=== PATIENT | male | born 1945 | race Caucasian/White ===

== ENCOUNTER → 2016-09-29 | Outpatient (CLI) | payer MEDICARE, BC | LOC: MW.CHORTHO 08:00 | PROVIDERS: ATTEND Physician Assistant | DX: M17.12 Unilateral primary osteoarthritis, left knee (principal) | CPT/HCPCS: 20610; G0463; J1040 ==

== ENCOUNTER 2017-10-03 11:31 | Inpatient (IN) | payer MEDICARE, BC ==
--- NOTE | 2017-10-03 08:34 | PCM.OPNOTE ---
- General Post-Op/Procedure Note Date of Surgery/Procedure: 10/03/17 Operative Procedure(s): left TKA Post-Op Diagnosis: DJD left knee Anesthesia Technique: Moderate Sedation, Spinal Primary Surgeon: Janene Garcia Stopperer Assembler: Taina Flor in mLs: 50 Condition: Good Free Text/Narrative:: tt= #
[~2017-10-03 11:31] MED LIST: Acetaminophen 1,000 MG in Premix Bag 1 BAG IV SCH; Famotidine 20 MG/2 ML SDV IVPUSH SCH; Ketorolac 30 MG/ML SDV IVPUSH SCH; Ropivacaine 49.25 ML, Ketorolac 30 MG, EPINEPHrine 0.5 MG, cloNIDine 80 MCG in Sodium C... INJECT SCH; Scopolamine 1.5 MG Transdermal Patch TRDERM SCH; Tranexamic Acid 4,000 MG in Sodium Chloride 0.9% 100 ML IV SCH; ceFAZolin 2 GM in Premix Bag 1 BAG IV SCH; oxyCODONE ER 10 MG TAB.ER PO SCH
--- NOTE | 2017-10-03 11:54 | PCM.PREANE ---
Preanesthetic Assessment - Procedure Proposed Procedure: Left total knee replacement - Anesthesia/Transfusion/Family Hx Anesthesia History: Prior Anesthesia Without Reaction Other Type of Anesthesia Reaction Comment: Nauseated post Knee arthroscopy, No known family hx: problems Transfusion History: Prior Transfusion Without Reaction Intubation History: Unknown Additional History: spinal for prior knee replacement - Review of Systems General: Other (pain due to knee) Pulmonary: No Symptoms Cardiovascular: Other (HTN on amlodipine; not on B Issac) Gastrointestinal: No Symptoms Neurological: Difficulty Walking (due to pain in left knee), Gait Disturbance Other: Reports: None - Physical Assessment NPO Status Date: 10/02/17 (except PO meds per surgeon) NPO Status Time: 22:00 Height: 5 ft 7 in Weight: 225 lb ASA Class: 3 Mental Status: Alert & Oriented x3 Dentition: Reports: Normal Dentition, [place](s) Thyro-Mental Finger Breadths: 3 Mouth Opening Finger Breadths: 3 ROM/Head Extension: Limited/Partial Lungs: Clear to Auscultation, Normal Respiratory Effort Cardiovascular: Regular Rhythm, No Murmurs, Tachycardia - Allergies Allergies/Adverse Reactions: Allergies Allergy/AdvReac Type Severity Reaction Status Date / Time Cat Dander Allergy Sneezing Uncoded 03/21/15 16:54 Seasonal Allergy Other Uncoded 03/21/15 16:54 [place] Allergy Hives Uncoded 12/11/15 11:48 - Blood Blood Available: No Product(s) Available: None - Anesthesia Plan Free Text/Narrative:: at bedside during interview and exam; consent for procedure, did advise medicine may be involved if his tachycardia persisits - deemed due to preop work at home efforts and dehydration along with essential hypertension Pre-Op Medication Ordered: Other (per surgeon orders) - Acknowledgements Anesthesia Type Planned: Spinal Pt an Appropriate Candidate for the Planned Anesthesia: Yes Alternatives and Risks of Anesthesia Discussed w Pt/Guardian: Yes Pt/Guardian Understands and Agrees with Anesthesia Plan: Yes PreAnesthesia Questionnaire HEENT History: Reports: Other (See Below) Other HEENT History: has top and bottom partial Cardiovascular History: Reports: Hypertension Respiratory History: Reports: Other (See Below) Other Respiratory History: had sleep apnea in the past " it got bit better after tonsillectomy and partial uvulectomy" Gastrointestinal History: Reports: Other (See Below) Other Gastrointestinal History: occasional heartburn Genitourinary History: Reports: Prostate Disorder Musculoskeletal History: Reports: Osteoarthritis Other Musculoskeletal History: hx: Hairline fracture to Left leg Neurological History: Reports: None Psychiatric History: Reports: None Endocrine/Metabolic History: Reports: Obesity/BMI 30+ Hematologic History: Reports: Blood Transfusion(s) Other Hematologic History: blood transfusion with prostatectomy Immunologic History: Reports: None Oncologic (Cancer) History: Reports: Prostate Dermatologic History: Reports: None - Past Surgical History Head Surgeries/Procedures: Reports: None HEENT Surgical History: Reports: Tonsillectomy Other HEENT Surgeries/Procedures: Tonsillectomy and partial uvulectomy at age 52 yrs GI Surgical History: Reports: Colonoscopy Male Surgical History: Reports: Prostatectomy Other Male Surgeries/Procedures: prostatectomy for prostate cancer Musculoskeletal Surgical History: Reports: Arthroscopic Knee, Hip Replacement, Knee Replacement Other Musculoskeletal Surgeries/Procedures:: Rt Arthroscopy, Right Hip Replacement, Right Knee Replacement - SUBSTANCE USE Smoking Status *Q: Never Smoker Tobacco Use Within Last Twelve Months:  Other Tobacco Use Within Last Twelve Months: Used to have Cigar once a year...have not for a long time Second Hand Smoke Exposure: No Recreational Drug Use History: No - HOME MEDS Home Medications: Home Meds amLODIPine [Norvasc] 5 mg PO ACBREAKFAST 03/21/15 [History] Omega3/Dha/Epa/Fish Oil/Vit D3 [Fish Oil + Vitamin D-3 Softgel] 1,000 mg PO DAILY 12/11/15 [History] Acetaminophen [Tylenol Extra Strength] 2 tab PO ASDIRECTED PRN 09/28/17 [History ] - CURRENT (IN HOUSE) MEDS Current Meds: Current Medications Famotidine (Pepcid) 40 mg IVPUSH ONARRIVE JONATHAN Acetaminophen 1,000 mg/ Premix 100 mls @ 400 mls/hr IV ONARRIVE JONATHAN Cefazolin Sodium/Dextrose 2 gm (/ Premix) 50 mls @ 100 mls/hr IV ONCALL JONATHAN Ropivacaine 49.25 ml/Ketorolac Tromethamine 30 mg/Epinephrine HCl 0.5 mg/ Clonidine HCl 80 mcg/ Sodium Chloride 100 mls @ 50 mls/sec INJECT ASDIRECTED JONATHAN Lactated Ringer's (Ringers, Lactated) 1,000 mls @ 100 mls/hr IV ASDIRECTED JONATHAN Tranexamic Acid 4,000 mg/ (Sodium Chloride) 140 mls @ 600 mls/hr IV ASDIRECTED JONATHAN Ketorolac Tromethamine (Toradol) 30 mg IVPUSH ONARRIVE JONATHAN Oxycodone HCl (Oxycontin) 10 mg PO ONARRIVE JONATHAN Scopolamine (Transderm-Scop) 1.5 mg TRDERM ONARRIVE JONATHAN Discontinued Medications Tranexamic Acid (Cyklokapron) Confirm Administered Dose 4,000 mg .ROUTE .[facility] Stop: 10/03/17 07:43
[2017-10-03] MEDS ORDERED: Lidocaine 2% 5 ML SDV ONE (11:58)
[2017-10-03] MEDS ORDERED: Propofol 200 MG/20 ML SDV ONE ×3 (11:58→14:24)
[2017-10-03] MEDS ORDERED: fentaNYL 100 MCG/2 ML SDV ONE (11:58)
[2017-10-03] MEDS ORDERED: Midazolam 1 MG/ML 2 ML SDV ONE (11:59)
[2017-10-03] MEDS ORDERED: ePHEDrine 50 MG/ML SDV ONE (12:05)
[2017-10-03] MEDS: Lactated Ringers 1,000 ML IV SCH (12:15)
[2017-10-03] MEDS ORDERED: Labetalol 100 MG/20 ML MDV ONE (14:07)
[2017-10-03] MEDS ORDERED: fentaNYL 100 MCG/2 ML SDV IVPUSH PRN (14:26)
[2017-10-03] MEDS ORDERED: Morphine PF 30 MG/30 ML PCA Vial ONE (15:02)
[2017-10-03] MEDS ORDERED: diphenhydrAMINE 25 MG Cap PO PRN (15:03)
[2017-10-03] MEDS ORDERED: Aluminum Hydroxide/Magnesium Hydroxide/Simethicone Susp 30 ML Cup PO PRN (15:04)
[2017-10-03] MEDS ORDERED: oxyCODONE 5 MG Tab PO PRN (15:04)
[2017-10-03] MEDS ORDERED: Bisacodyl 10 MG Supp RECTAL PRN (15:04)
[2017-10-03] MEDS ORDERED: Morphine PF 30 MG/30 ML PCA Vial IV SCH (15:15)
[2017-10-03] MEDS ORDERED: oxyCODONE 5 MG Tab ONE (18:20)
--- NOTE | 2017-10-04 01:57 | CR ---
EXAMINATION: Left knee HISTORY: Arthroplasty COMPARISON: 01/04/2017 TECHNIQUE: 2 views FINDINGS/IMPRESSION: Left total knee hardware demonstrated in good position and alignment. Postoperat jodie soft tissue changes.
--- NOTE | 2017-10-04 01:57 | OR ---
SURGEON: Janene Garcia MD DATE OF PROCEDURE: 10/03/2017 PREOPERATIVE DIAGNOSIS: Degenerative joint disease, left knee, tricompartmental. POSTOPERATIVE DIAGNOSIS: Degenerative joint disease, left knee, tricompartmental. PROCEDURE: Left total knee arthroplasty using patient specific instrumentation. MAIN LINE ASSEMBLER: Taina Flor PA-C and Trevor King MD, PGY2. ANESTHESIA: Spinal with sedation. ESTIMATED BLOOD LOSS: 50 mL. TOURNIQUET TIME: 50 minutes. COMPLICATIONS: None. DVT PROPHYLAXIS: PAS boot and MACO hose to the nonoperative leg. IMPLANTS USED: Ella Persona femoral component size 8 standard (LPS), tibial component size G, 10 mm all-polyethylene articular surface, and 35 mm all-polyethylene patella. INTRAOPERATIVE FINDINGS: Showed severe tricompartmental degenerative changes. Osteophyte formation was noted. No significant synovitis was found. BRIEF HISTORY: The patient is a 71-year-old male who has had complaint of progressive left knee pain. X-rays did show evidence of tricompartmental degenerative changes. Due to his lack of response to conservative treatment, I did recommend surgical intervention. Risks and goals of procedure were discussed with the patient and were documented preoperatively. He agreed to proceed. DESCRIPTION OF PROCEDURE: The patient was properly identified and brought to the operating room. The patient was then transferred from the operating room cart and placed on the operating table in a supine position. Anesthesia was administered by the anesthesia staff. After adequate anesthesia was obtained, a well-padded tourniquet was applied to the surgical lower extremity. Nolen catheter was placed. The lower extremity was then prepped in standard fashion using ChloraPrep solution. It was then sterilely draped. A time-out was performed to ensure correct site and procedure. Preoperative antibiotics were given along with one gram of tranexamic acid IV. The surgical site had been marked preoperatively. An Esmarch was used to exsanguinate the right lower extremity and the tourniquet was inflated. An incision was made over the anterior aspect of the knee. The subcutaneous tissues were dissected down to the level of the fascia. A medial parapatellar approach to the knee was made. A portion of the infrapatellar fat pad was then excised. The distal femur was then exposed. The femoral patient-specific cutting guide was then placed. Pins were also placed. The distal femoral cutting block was placed and the distal femoral cut was made. Instrumentation was then removed. Both Whitesides' line and the epicondylar axis were then marked with electrocautery. The 4-in-1 cutting block was placed. This was placed in a slightly externally rotated position, which corresponded well with the previously drawn lines. The cutting guide was then pinned into position. An Sree wing guide was used to check the depth of resection of our anterior condylar cut and it was felt that no notching would occur. The anterior condylar cut was then made followed by the posterior condylar cut. Both the posterior chamfer and anterior chamfer cuts were then made. The cutting block was then removed along with the excess bony remnants. We then turned our attention to the tibia. The anterior cruciate ligament and posterior cruciate ligament were released and a posterior cruciate ligament retractor was placed to allow the tibia to be pulled anteriorly. The tibial patient-specific guide was then placed on the proximal tibia. This fit anatomically. The pins were then placed. The proximal tibia cutting guide was then placed and screwed into position. The proximal tibial resection was then made with care being taken to protect the patellar tendon. The bony resection was then removed. The remainder of the medial and lateral meniscus were then excised. Care was taken to protect the popliteus tendon. The tibia was then sized to the appropriate size. The distal femur was then elevated. The posterior capsule was stripped off the distal femur both medially and laterally. The posterior capsule along with the medial and lateral gutters were then injected with a standard mixture consisting of clonidine, epinephrine, Toradol, and Ropivacaine, unless any allergies were found preoperatively. The femoral component was then placed onto the distal femur in a slightly lateral position. This fit the femur well. A box cut was then made without difficulty. This was then removed. The tibial trial along with the polyethylene liner was then placed. The knee came easily into full extension and was stable to varus and valgus stressing both in full extension and flexion. Any additional releases were performed at this time. We then returned our attention to the patella. The patella was everted and towel clamps were used to hold the patella in position. It was resected to a 15 millimeter thickness. It was then sized to the appropriate size. It was prepared in the usual fashion after placing the predetermined size clamps. This was placed in a slightly superior and medial position. The clamp was then removed. The patellar trial button was placed. The knee was taken through a range of motion using the no-touch technique. The patella tracked centrally. A drop mireya was then placed to check alignment. All instruments were then removed from the knee. The tibial sizer was then placed on the tibia. The tibia was prepared in the usual fashion using the reamer and broach. This was then removed. All bony surfaces were copiously irrigated with Pulsavac solution. They were then suctioned dry. Cement was prepared on the back table in the usual manner. Once it was prepared, the bone ends were again suctioned dry. The tibia was cemented into place first. This was malleted into position. Excess cement was then cleared. The femur was then placed in a similar manner. We placed the polyethylene trial into place and the knee was brought into full extension. An axial load was placed while keeping the knee in full extension. The patella button was also cemented into position and the clamp was used to hold this in place as the cement was allowed to cure. The wound was again copiously irrigated with saline solution using a Pulsavac member service representative. Following this 1 g of tranexamic acid was applied to the wound topically. After we had adequate curing of the cement, the knee was again taken through a range of motion. The size of the polyethylene was then determined. The polyethylene trial was then removed. The tibial tray was suctioned to make sure there was no remaining soft tissue or cement. Excess cement was cleared from around the edges of the prosthesis as well. The tourniquet was then deflated. We were able to observe for any excess bleeding and none was noted. Electrocautery was used to maintain hemostasis. An additional gram of tranexamic acid was given IV. The retractors were again placed and the predetermined polyethylene was then placed. This was locked into position without difficulty. The knee was again taken through a range of motion with no change from the prior exam. The fascial layer was closed with Number One Vicryl. The subcutaneous tissues were closed with 2-0 Vicryl. The skin was closed with helena. Xeroform gauze was placed over the wound and a bulky dressing was applied. The patient was then awakened from anesthesia and transferred back to the operating room cart. They were brought to the recovery room in stable condition. All needle and sponge counts were correct. FABRICIO / VINCENT /[id number]
[2017-10-04] MEDS: Docusate Sodium 100 MG Cap PO SCH ×3 (04:22→20:23)
[2017-10-04] MEDS: ceFAZolin 2 GM in Premix Bag 1 BAG IV SCH ×2 (04:22→04:57)
[2017-10-04] MEDS: oxyCODONE ER 10 MG TAB.ER PO SCH ×3 (04:23→20:21)
[2017-10-04] MEDS: Ketorolac 30 MG/ML SDV IVPUSH SCH (04:26)
[2017-10-04] MEDS: Acetaminophen 1,000 MG in Premix Bag 1 BAG IV SCH ×2 (04:36→10:31)
[2017-10-04] MEDS: Lactated Ringers 1,000 ML IV SCH (05:37)
--- NOTE | 2017-10-04 07:15 | PCM48HPAN ---
Post Anesthesia Note - EVALUATION WITHIN 48HRS OF ANESTHETIC Vital Signs in Normal Range: Yes Patient Participated in Evaluation: Yes Respiratory Function Stable: Yes Airway Patent: Yes Cardiovascular Function Stable: Yes Hydration Status Stable: Yes Pain Control Satisfactory: Yes Nausea and Vomiting Control Satisfactory: Yes Mental Status Recovered: Yes Resp Rate: 18
--- NOTE | 2017-10-04 07:15 | PCM.POSTAN ---
POST ANESTHESIA ASSESSMENT - MENTAL STATUS Mental Status: Alert, Oriented - RESPIRATORY Respiratory Status: Respiratory Rate WNL, Airway Patent, O2 Saturation Stable - CARDIOVASCULAR CV Status: Pulse Rate WNL, Blood Pressure Stable - GASTROINTESTINAL GI Status: No Symptoms - POST OP HYDRATION Hydration Status: Adequate & Stable
[2017-10-04] MEDS ORDERED: Sodium Chloride 0.9% 10 ML Syringe FLUSH PRN (07:57)
[2017-10-04] MEDS ORDERED: Sodium Chloride 0.9% 2.5 ML Syringe FLUSH PRN (07:57)
[2017-10-04] MEDS ORDERED: Morphine 10 MG/ML Syringe IVPUSH PRN (08:00)
--- NOTE | 2017-10-04 08:02 | PCM.SURGPN ---
- General Info Date of Service: 10/04/17 Date of Surgery/Procedure: 10/03/17 POD#: 1 Functional Status: Reports: Pain Controlled, Tolerating Diet - Review of Systems General: Reports: No Symptoms Pulmonary: Reports: No Symptoms Cardiovascular: Reports: No Symptoms Gastrointestinal: Reports: No Symptoms Musculoskeletal: Reports: Leg Pain Systems Review Comment:: pt resting comfortably in bed feels pain is controlled c/o lightheadedness when he stands no other complaints denies n/v/cp/sob no specific concerns today - Patient Data Vitals - Most Recent: Last Vital Signs Temp 98.7 F 10/04/17 04:16 Pulse 74 10/04/17 07:45 Resp 16 10/04/17 07:45 BP 153/70 H 10/04/17 07:45 Pulse Ox 92 L 10/04/17 07:45 Weight - Most Recent: 102.058 kg I&O - Last 24 Hours: Intake & Output 10/03/17 10/04/17 10/04/17 22:59 06:59 14:59 Intake Total 1549 Output Total 950 Balance 599 Lab Results Last 24 Hrs: Laboratory Results - last 24 hr 10/03/17 10/04/17 Range/Units 12:04 06:03 Hgb 12.1 L (13.0-17.0) g/dL Hct 36.6 L (38.0-50.0) % Blood Type O POSITIVE Antibody Screen NEGATIVE Med Orders - Current: Current Medications Al Hydroxide/Mg Hydroxide (Mag-Al Plus) 30 ml PO Q4H PRN PRN Reason: indigestion Amlodipine Besylate (Norvasc) 5 mg PO ACBREAKFAST [facility] Aspirin (Aspirin) 325 mg PO BID [facility] Bisacodyl (Dulcolax) 10 mg RECTAL DAILY PRN PRN Reason: Constipation Celecoxib (Celebrex) 200 mg PO BID [facility] Diphenhydramine HCl (Benadryl) 25 - 50 mg PO Q6H PRN PRN Reason: Itching Docusate Sodium (Colace) 100 mg PO BID [facility] Last Admin: 10/04/17 04:22 Dose: Not Given Famotidine (Pepcid) 40 mg PO DAILY [facility] Fentanyl (Sublimaze) 50 mcg IVPUSH Q5M PRN PRN Reason: Pain (severe 7-10) Stop: 10/04/17 14:26 Ropivacaine 49.25 ml/Ketorolac Tromethamine 30 mg/Epinephrine HCl 0.5 mg/ Clonidine HCl 80 mcg/ Sodium Chloride 100 mls @ 50 mls/sec INJECT ASDIRECTED [facility] Tranexamic Acid 4,000 mg/ (Sodium Chloride) 140 mls @ 600 mls/hr IV ASDIRECTED [facility] Acetaminophen 1,000 mg/ Premix 100 mls @ 400 mls/hr IV Q8H JONATHAN Stop: 10/04/17 12:14 Morphine Sulfate (Morphine) 1 - 3 mg IVPUSH Q3H PRN PRN Reason: Pain Morphine Sulfate (Morphine Pre Billing Specialist 30 Mg In 30 Ml) 30 mg IV ASDIRECTED [facility]; Protocol Stop: 10/04/17 08:00 Non-Formulary Medication (Omega3/Dha/Epa/Fish Oil/Vit D3 [Fish Oil + Vitamin D- 3 Softgel]) 1,000 mg PO DAILY [facility] Ondansetron HCl (Zofran) 4 mg IV Q6HR PRN PRN Reason: NAUSEA/VOMITING Oxycodone HCl (Oxycodone) 5 - 10 mg PO Q4H PRN PRN Reason: Pain Stop: 10/04/17 08:00 Last Admin: 10/04/17 04:47 Dose: 10 mg Oxycodone HCl (Oxycontin) 10 mg PO Q12HR [facility] Last Admin: 10/04/17 04:23 Dose: Not Given Scopolamine (Transderm-Scop) 1.5 mg TRDERM ONARRIVE [facility] Last Admin: 10/03/17 12:17 Dose: 1.5 mg Discontinued Medications Ephedrine Sulfate (Ephedrine Sulfate) Confirm Administered Dose 50 mg .ROUTE .STK-MED ONE Stop: 10/03/17 12:06 Famotidine (Pepcid) 40 mg IVPUSH ONARRIVE [facility] Last Admin: 10/03/17 12:16 Dose: 40 mg Fentanyl (Sublimaze) Confirm Administered Dose 100 mcg .ROUTE .STK-MED ONE Stop: 10/03/17 11:59 Acetaminophen 1,000 mg/ Premix 100 mls @ 400 mls/hr IV ONARRIVE [facility] Last Admin: 10/03/17 12:20 Dose: 400 mls/hr Cefazolin Sodium/Dextrose 2 gm (/ Premix) 50 mls @ 100 mls/hr IV ONCALL [facility] Lactated Ringer's (Ringers, Lactated) 1,000 mls @ 100 mls/hr IV ASDIRECTED [facility] Last Admin: 10/04/17 05:37 Dose: 100 mls/hr Acetaminophen 1,000 mg/ Premix 100 mls @ 400 mls/hr IV Q6H [facility] Stop: 10/04/17 06:44 Last Admin: 10/04/17 04:36 Dose: 400 mls/hr Cefazolin Sodium/Dextrose 2 gm (/ Premix) 50 mls @ 100 mls/hr IV Q8H [facility] Stop: 10/04/17 05:29 Last Admin: 10/04/17 04:57 Dose: 100 mls/hr Acetaminophen (Ofirmev) Confirm Administered Dose 100 mls @ as directed IV .STK- MED ONE Stop: 10/03/17 21:26 Last Admin: 10/04/17 07:53 Dose: Not Given Ketorolac Tromethamine (Toradol) 30 mg IVPUSH ONARRIVE [facility] Last Admin: 10/03/17 12:18 Dose: 30 mg Ketorolac Tromethamine (Toradol) 30 mg IVPUSH Q6H [facility] Stop: 10/04/17 05:00 Last Admin: 10/04/17 04:26 Dose: Not Given Labetalol HCl (Normodyne) Confirm Administered Dose 100 mg .ROUTE .STK-MED ONE Stop: 10/03/17 14:08 Lidocaine (Xylocaine-Mpf 2%) Confirm Administered Dose 10 ml .ROUTE .STK-MED ONE Stop: 10/03/17 11:59 Midazolam HCl (Versed 1 Mg/Ml) Confirm Administered Dose 2 mg .ROUTE .STK-MED ONE Stop: 10/03/17 12:00 Morphine Sulfate (Morphine Pre Billing Specialist 30 Mg In 30 Ml) Confirm Administered Dose 30 mg .ROUTE .STK-MED ONE Stop: 10/03/17 15:03 Oxycodone HCl (Oxycontin) 10 mg PO ONARRIVE [facility] Last Admin: 10/03/17 12:15 Dose: 10 mg Oxycodone HCl (Oxycodone) Confirm Administered Dose 10 mg .ROUTE .STK-MED ONE Stop: 10/03/17 18:21 Propofol (Diprivan 20 Ml) Confirm Administered Dose 400 mg .ROUTE .STK-MED ONE Stop: 10/03/17 11:59 Propofol (Diprivan 20 Ml) Confirm Administered Dose 200 mg .ROUTE .STK-MED ONE Stop: 10/03/17 13:59 Propofol (Diprivan 20 Ml) Confirm Administered Dose 200 mg .ROUTE .STK-MED ONE Stop: 10/03/17 14:25 Tranexamic Acid (Cyklokapron) Confirm Administered Dose 4,000 mg .ROUTE .STK- MED ONE Stop: 10/03/17 07:43 - Exam Wound/Incisions: Dressing Dry and Intact. No: Drainage, Erythema General: Alert, Oriented Cardiovascular: Regular Rate, Regular Rhythm Extremities: Other (exam LLE - at/ehl/gastroc 5/5, dp 2+, sensation intact distally) Physical Findings Comment:: vss, afeb (bp slightly elevated) uo 1100+mL hgb 12.1 - Problem List Review Problem List Initiated/Reviewed/Updated: Yes - My Orders Last 24 Hours: Active Orders 24 hr Category Date Time Status Activity as Tolerated [RC] .Routine Care 10/03/17 15:03 Active Dressing Change [Wound Care] [RC] ASDIRECTED Care 10/03/17 15:03 Active Insert Urinary Catheter [OM.PC] Q24H Care 10/03/17 08:00 Ordered Intake and Output [RC] Q12H Care 10/03/17 15:03 Active Neurovascular Check [RC] Q2HR Care 10/03/17 15:03 Active Notify Provider Vital Signs [RC] ASDIRECTED Care 10/03/17 15:03 Active RT Incentive Spirometry [RC] ASDIRECTED Care 10/03/17 15:03 Active Urinary Catheter Assessment [RC] Q12H Care 10/03/17 08:00 Active Urinary Catheter Removal [RC] Per Unit Routine Care 10/04/17 07:57 Ordered Vital Signs [RC] Q4H Care 10/03/17 15:03 Active PT Evaluation and Treatment [CONS] Routine Cons 10/03/17 15:03 Active Regular Diet [DIET] Diet 10/04/17 Breakfast Active HEMOGLOBIN/HEMATOCRIT,HH [HEME] DAILY Lab 10/05/17 06:00 Ordered HEMOGLOBIN/HEMATOCRIT,HH [HEME] DAILY Lab 10/06/17 06:00 Ordered Acetaminophen [Ofirmev] 1,000 mg Med 10/04/17 12:00 Active Premix Bag 1 bag IV Q8H Alum Hydrox/Mag Hydrox/Simeth [Mag-Al Plus] Med 10/03/17 15:04 Active 30 ml PO Q4H PRN Aspirin Med 10/04/17 09:00 Active 325 mg PO BID Bisacodyl [Dulcolax] Med 10/03/17 15:04 Active 10 mg RECTAL DAILY PRN Celecoxib [CeleBREX] Med 10/04/17 09:00 Active 200 mg PO BID Docusate Sodium [Colace] Med 10/03/17 21:00 Active 100 mg PO BID Famotidine [Pepcid] Med 10/04/17 09:00 Active 40 mg PO DAILY Morphine Med 10/04/17 08:00 Active 1 - 3 mg IVPUSH Q3H PRN Morphine PF [Morphine COLON THERAPIST 30 MG in 30 ML] Med 10/03/17 15:15 Active 30 mg IV ASDIRECTED Omega3/Dha/Epa/Fish Oil/Vit D3 [Fish Oil + Vitamin D-3 Med 10/04/17 09:00 Ordered Softgel] 1,000 mg PO DAILY Ondansetron [Zofran] Med 10/03/17 15:03 Active 4 mg IV Q6HR PRN Ropivacaine [Naropin 0.2%] 49.25 ml Med 10/03/17 08:00 Active Ketorolac [Toradol] 30 mg EPINEPHrine [Adrenalin] 0.5 mg cloNIDine [Duraclon] 80 mcg Sodium Chloride 0.9% [Normal Saline] 48.45 ml INJECT ASDIRECTED Sodium Chloride 0.9% [Saline Flush] Med 10/04/17 07:57 Ordered 10 ml FLUSH ASDIRECTED PRN Sodium Chloride 0.9% [Saline Flush] Med 10/04/17 07:57 Ordered 2.5 ml FLUSH ASDIRECTED PRN Tranexamic Acid [Cyklokapron] 4,000 mg Med 10/03/17 08:00 Active Sodium Chloride 0.9% [Normal Saline] 100 ml IV ASDIRECTED amLODIPine [Norvasc] Med 10/05/17 07:30 Ordered 5 mg PO ACBREAKFAST diphenhydrAMINE [Benadryl] Med 10/03/17 15:03 Active 25 - 50 mg PO Q6H PRN fentaNYL [Sublimaze] Med 10/03/17 14:26 Active 50 mcg IVPUSH Q5M PRN oxyCODONE Med 10/03/17 15:04 Active 5 - 10 mg PO Q4H PRN oxyCODONE ER [OxyCONTIN] Med 10/03/17 21:00 Active 10 mg PO Q12HR Convert IV to Saline Lock [OM.PC] Routine Oth 10/04/17 07:57 Ordered Ice Therapy [OM.PC] Routine Oth 10/03/17 15:03 Ordered Medication Orders Al Hydroxide/Mg Hydroxide (Mag-Al Plus) 30 ml PO Q4H PRN PRN Reason: indigestion Amlodipine Besylate (Norvasc) 5 mg PO ACBREAKFAST [facility] Aspirin (Aspirin) 325 mg PO BID [facility] Bisacodyl (Dulcolax) 10 mg RECTAL DAILY PRN PRN Reason: Constipation Celecoxib (Celebrex) 200 mg PO BID [facility] Diphenhydramine HCl (Benadryl) 25 - 50 mg PO Q6H PRN PRN Reason: Itching Docusate Sodium (Colace) 100 mg PO BID [facility] Last Admin: 10/04/17 04:22 Dose: Famotidine (Pepcid) 40 mg PO DAILY [facility] Fentanyl (Sublimaze) 50 mcg IVPUSH Q5M PRN PRN Reason: Pain (severe 7-10) Stop: 10/04/17 14:26 Ropivacaine 49.25 ml/Ketorolac Tromethamine 30 mg/Epinephrine HCl 0.5 mg/ Clonidine HCl 80 mcg/ Sodium Chloride 100 mls @ 50 mls/sec INJECT ASDIRECTED [facility] Tranexamic Acid 4,000 mg/ (Sodium Chloride) 140 mls @ 600 mls/hr IV ASDIRECTED [facility] Acetaminophen 1,000 mg/ Premix 100 mls @ 400 mls/hr IV Q8H [facility] Stop: 10/04/17 12:14 Morphine Sulfate (Morphine) 1 - 3 mg IVPUSH Q3H PRN PRN Reason: Pain Morphine Sulfate (Morphine Pre Billing Specialist 30 Mg In 30 Ml) 30 mg IV ASDIRECTED [facility]; Protocol Stop: 10/04/17 08:00 Non-Formulary Medication (Omega3/Dha/Epa/Fish Oil/Vit D3 [Fish Oil + Vitamin D- 3 Softgel]) 1,000 mg PO DAILY [facility] Ondansetron HCl (Zofran) 4 mg IV Q6HR PRN PRN Reason: NAUSEA/VOMITING Oxycodone HCl (Oxycodone) 5 - 10 mg PO Q4H PRN PRN Reason: Pain Stop: 10/04/17 08:00 Last Admin: 10/04/17 04:47 Dose: 10 mg Oxycodone HCl (Oxycontin) 10 mg PO Q12HR [facility] Last Admin: 10/04/17 04:23 Dose: Scopolamine (Transderm-Scop) 1.5 mg TRDERM ONARRIVE [facility] Last Admin: 10/03/17 12:17 Dose: 1.5 mg - Assessment Assessment (Free Text/Narrative):: POD#1 L TKA acute posthemorrhagic anemia - Plan Plan (Free Text/Narrative):: oxycontin, percocet 5/325, morphine IV for breakthrough pain celebrex ASA 325mg PO BID as DVT prophylaxis DC COLON THERAPIST, IV fluids, peraza PT today if pt does well with PT, pain is controlled, tolerates PO intake, may d/ch to home this afternoon dressing change to aquacel prior to d/ch to home
[2017-10-04] MEDS: Aspirin 325 MG Tab PO SCH ×2 (08:12→20:22)
[2017-10-04] MEDS: Celecoxib 100 MG Cap PO SCH ×2 (08:12→20:22)
[2017-10-04] MEDS: Fish Oil/Omega-3 Fatty Acids 1 Gm Cap PO SCH (08:13)
[2017-10-04] MEDS: Famotidine 20 MG Tab PO SCH (08:13)
--- NOTE | 2017-10-04 08:21 | PCM.SURGPN ---
<Trevor King - Last Filed: 10/04/17 08:24> - General Info Date of Service: 10/04/17 Date of Surgery/Procedure: 10/03/17 POD#: 1 - Review of Systems Systems Review Comment:: No major events overnight. Doing well this am. Pain is tolerable. Has been out of bed to chair. Tolerating oral intake. Some lightheadedness/dizziness when up. Denies nausea, vomiting, fever, chills, chest pain, or SOB. Peraza in place. - Patient Data Vitals - Most Recent: Last Vital Signs Temp 37.1 C 10/04/17 04:16 Pulse 74 10/04/17 07:45 Resp 16 10/04/17 07:45 BP 153/70 H 10/04/17 07:45 Pulse Ox 92 L 10/04/17 07:45 Weight - Most Recent: 102.058 kg I&O - Last 24 Hours: Intake & Output 10/03/17 10/04/17 10/04/17 22:59 06:59 14:59 Intake Total 1549 Output Total 950 Balance 599 Lab Results Last 24 Hrs: Laboratory Results - last 24 hr 10/03/17 10/04/17 Range/Units 12:04 06:03 Hgb 12.1 L (13.0-17.0) g/dL Hct 36.6 L (38.0-50.0) % Blood Type O POSITIVE Antibody Screen NEGATIVE Med Orders - Current: Current Medications Al Hydroxide/Mg Hydroxide (Mag-Al Plus) 30 ml PO Q4H PRN PRN Reason: indigestion Amlodipine Besylate (Norvasc) 5 mg PO ACBREAKFAST [facility] Aspirin (Aspirin) 325 mg PO BID [facility] Last Admin: 10/04/17 08:12 Dose: 325 mg Bisacodyl (Dulcolax) 10 mg RECTAL DAILY PRN PRN Reason: Constipation Celecoxib (Celebrex) 200 mg PO BID [facility] Last Admin: 10/04/17 08:12 Dose: 200 mg Diphenhydramine HCl (Benadryl) 25 - 50 mg PO Q6H PRN PRN Reason: Itching Docusate Sodium (Colace) 100 mg PO BID [facility] Last Admin: 10/04/17 08:13 Dose: 100 mg Famotidine (Pepcid) 40 mg PO DAILY [facility] Last Admin: 10/04/17 08:13 Dose: 40 mg Fentanyl (Sublimaze) 50 mcg IVPUSH Q5M PRN PRN Reason: Pain (severe 7-10) Stop: 10/04/17 14:26 Fish Oil (Fish Oil) 1 gm PO DAILY [facility] Last Admin: 10/04/17 08:13 Dose: 1 gm Ropivacaine 49.25 ml/Ketorolac Tromethamine 30 mg/Epinephrine HCl 0.5 mg/ Clonidine HCl 80 mcg/ Sodium Chloride 100 mls @ 50 mls/sec INJECT ASDIRECTED [facility] Tranexamic Acid 4,000 mg/ (Sodium Chloride) 140 mls @ 600 mls/hr IV ASDIRECTED [facility] Acetaminophen 1,000 mg/ Premix 100 mls @ 400 mls/hr IV Q8H [facility] Stop: 10/04/17 12:14 Morphine Sulfate (Morphine) 1 - 3 mg IVPUSH Q3H PRN PRN Reason: Pain Ondansetron HCl (Zofran) 4 mg IV Q6HR PRN PRN Reason: NAUSEA/VOMITING Oxycodone HCl (Oxycontin) 10 mg PO Q12HR [facility] Last Admin: 10/04/17 08:12 Dose: 10 mg Scopolamine (Transderm-Scop) 1.5 mg TRDERM ONARRIVE [facility] Last Admin: 10/03/17 12:17 Dose: 1.5 mg Sodium Chloride (Saline Flush) 10 ml FLUSH ASDIRECTED PRN PRN Reason: Keep Vein Open Sodium Chloride (Saline Flush) 2.5 ml FLUSH ASDIRECTED PRN PRN Reason: Keep Vein Open Discontinued Medications Ephedrine Sulfate (Ephedrine Sulfate) Confirm Administered Dose 50 mg .ROUTE .STK-MED ONE Stop: 10/03/17 12:06 Famotidine (Pepcid) 40 mg IVPUSH ONARRIVE [facility] Last Admin: 10/03/17 12:16 Dose: 40 mg Fentanyl (Sublimaze) Confirm Administered Dose 100 mcg .ROUTE .STK-MED ONE Stop: 10/03/17 11:59 Acetaminophen 1,000 mg/ Premix 100 mls @ 400 mls/hr IV ONARRIVE [facility] Last Admin: 10/03/17 12:20 Dose: 400 mls/hr Cefazolin Sodium/Dextrose 2 gm (/ Premix) 50 mls @ 100 mls/hr IV ONCALL [facility]ON[facility] Lactated Ringer's (Ringers, Lactated) 1,000 mls @ 100 mls/hr IV ASDIRECTED [facility] Last Admin: 10/04/17 05:37 Dose: 100 mls/hr Acetaminophen 1,000 mg/ Premix 100 mls @ 400 mls/hr IV Q6H [facility] Stop: 10/04/17 06:44 Last Admin: 10/04/17 04:36 Dose: 400 mls/hr Cefazolin Sodium/Dextrose 2 gm (/ Premix) 50 mls @ 100 mls/hr IV Q8H [facility] Stop: 10/04/17 05:29 Last Admin: 10/04/17 04:57 Dose: 100 mls/hr Acetaminophen (Ofirmev) Confirm Administered Dose 100 mls @ as directed IV .STK- MED ONE Stop: 10/03/17 21:26 Last Admin: 10/04/17 07:53 Dose: Not Given Ketorolac Tromethamine (Toradol) 30 mg IVPUSH ONARRIVE [facility] Last Admin: 10/03/17 12:18 Dose: 30 mg Ketorolac Tromethamine (Toradol) 30 mg IVPUSH Q6H [facility] Stop: 10/04/17 05:00 Last Admin: 10/04/17 04:26 Dose: Not Given Labetalol HCl (Normodyne) Confirm Administered Dose 100 mg .ROUTE .STK-MED ONE Stop: 10/03/17 14:08 Lidocaine (Xylocaine-Mpf 2%) Confirm Administered Dose 10 ml .ROUTE .STK-MED ONE Stop: 10/03/17 11:59 Midazolam HCl (Versed 1 Mg/Ml) Confirm Administered Dose 2 mg .ROUTE .STK-MED ONE Stop: 10/03/17 12:00 Morphine Sulfate (Morphine Strainer Cleaner 30 Mg In 30 Ml) Confirm Administered Dose 30 mg .ROUTE .STK-MED ONE Stop: 10/03/17 15:03 Morphine Sulfate (Morphine Strainer Cleaner 30 Mg In 30 Ml) 30 mg IV ASDIRECTED [facility]; Protocol Stop: 10/04/17 08:00 Oxycodone HCl (Oxycontin) 10 mg PO ONARRIVE [facility] Last Admin: 10/03/17 12:15 Dose: 10 mg Oxycodone HCl (Oxycodone) 5 - 10 mg PO Q4H PRN PRN Reason: Pain Stop: 10/04/17 08:00 Last Admin: 10/04/17 04:47 Dose: 10 mg Oxycodone HCl (Oxycodone) Confirm Administered Dose 10 mg .ROUTE .STK-MED ONE Stop: 10/03/17 18:21 Propofol (Diprivan 20 Ml) Confirm Administered Dose 400 mg .ROUTE .STK-MED ONE Stop: 10/03/17 11:59 Propofol (Diprivan 20 Ml) Confirm Administered Dose 200 mg .ROUTE .STK-MED ONE Stop: 10/03/17 13:59 Propofol (Diprivan 20 Ml) Confirm Administered Dose 200 mg .ROUTE .STK-MED ONE Stop: 10/03/17 14:25 Tranexamic Acid (Cyklokapron) Confirm Administered Dose 4,000 mg .ROUTE .STK- MED ONE Stop: 10/03/17 07:43 - Exam Wound/Incisions: Dressing Dry and Intact, Other (Polar ice in place to LLE. ) General: Alert, No Acute Distress Lungs: Clear to Auscultation, Normal Respiratory Effort Cardiovascular: Regular Rate GI/Abdominal Exam: Soft Extremities: Other (LLE appropriately tender. Polar ice and dressing clean and intact. Distal motor and sensation grossly intact. ) Skin: Warm, Dry - Problem List Review Problem List Initiated/Reviewed/Updated: Yes - My Orders Last 24 Hours: Active Orders 24 hr Category Date Time Status Activity as Tolerated [RC] .Routine Care 10/03/17 15:03 Active Dressing Change [Wound Care] [RC] ASDIRECTED Care 10/03/17 15:03 Active Insert Urinary Catheter [OM.PC] Q24H Care 10/03/17 08:00 Ordered Intake and Output [RC] Q12H Care 10/03/17 15:03 Active Neurovascular Check [RC] Q2HR Care 10/03/17 15:03 Active Notify Provider Vital Signs [RC] ASDIRECTED Care 10/03/17 15:03 Active RT Incentive Spirometry [RC] ASDIRECTED Care 10/03/17 15:03 Active Urinary Catheter Assessment [RC] Q12H Care 10/03/17 08:00 Active Urinary Catheter Removal [RC] Per Unit Routine Care 10/04/17 07:57 Active Vital Signs [RC] Q4H Care 10/03/17 15:03 Active PT Evaluation and Treatment [CONS] Routine Cons 10/03/17 15:03 Active Regular Diet [DIET] Diet 10/04/17 Breakfast Active HEMOGLOBIN/HEMATOCRIT,HH [HEME] DAILY Lab 10/05/17 06:00 Ordered HEMOGLOBIN/HEMATOCRIT,HH [HEME] DAILY Lab 10/06/17 06:00 Ordered Acetaminophen [Ofirmev] 1,000 mg Med 10/04/17 12:00 Active Premix Bag 1 bag IV Q8H Alum Hydrox/Mag Hydrox/Simeth [Mag-Al Plus] Med 10/03/17 15:04 Active 30 ml PO Q4H PRN Aspirin Med 10/04/17 09:00 Active 325 mg PO BID Bisacodyl [Dulcolax] Med 10/03/17 15:04 Active 10 mg RECTAL DAILY PRN Celecoxib [CeleBREX] Med 10/04/17 09:00 Active 200 mg PO BID Docusate Sodium [Colace] Med 10/03/17 21:00 Active 100 mg PO BID Famotidine [Pepcid] Med 10/04/17 09:00 Active 40 mg PO DAILY Fish Oil/Lipan-3 Fatty Acids [Fish Oil] Med 10/04/17 09:00 Active 1 gm PO DAILY Morphine Med 10/04/17 08:00 Active 1 - 3 mg IVPUSH Q3H PRN Ondansetron [Zofran] Med 10/03/17 15:03 Active 4 mg IV Q6HR PRN Ropivacaine [Naropin 0.2%] 49.25 ml Med 10/03/17 08:00 Active Ketorolac [Toradol] 30 mg EPINEPHrine [Adrenalin] 0.5 mg cloNIDine [Duraclon] 80 mcg Sodium Chloride 0.9% [Normal Saline] 48.45 ml INJECT ASDIRECTED Sodium Chloride 0.9% [Saline Flush] Med 10/04/17 07:57 Active 10 ml FLUSH ASDIRECTED PRN Sodium Chloride 0.9% [Saline Flush] Med 10/04/17 07:57 Active 2.5 ml FLUSH ASDIRECTED PRN Tranexamic Acid [Cyklokapron] 4,000 mg Med 10/03/17 08:00 Active Sodium Chloride 0.9% [Normal Saline] 100 ml IV ASDIRECTED amLODIPine [Norvasc] Med 10/05/17 07:30 Active 5 mg PO ACBREAKFAST diphenhydrAMINE [Benadryl] Med 10/03/17 15:03 Active 25 - 50 mg PO Q6H PRN fentaNYL [Sublimaze] Med 10/03/17 14:26 Active 50 mcg IVPUSH Q5M PRN oxyCODONE ER [OxyCONTIN] Med 10/03/17 21:00 Active 10 mg PO Q12HR Convert IV to Saline Lock [OM.PC] Routine Oth 10/04/17 07:57 Ordered Ice Therapy [OM.PC] Routine Ot 10/03/17 15:03 Ordered Medication Orders Al Hydroxide/Mg Hydroxide (Mag-Al Plus) 30 ml PO Q4H PRN PRN Reason: indigestion Amlodipine Besylate (Norvasc) 5 mg PO ACBREAKFAST [facility] Aspirin (Aspirin) 325 mg PO BID [facility] Last Admin: 10/04/17 08:12 Dose: 325 mg Bisacodyl (Dulcolax) 10 mg RECTAL DAILY PRN PRN Reason: Constipation Celecoxib (Celebrex) 200 mg PO BID [facility] Last Admin: 10/04/17 08:12 Dose: 200 mg Diphenhydramine HCl (Benadryl) 25 - 50 mg PO Q6H PRN PRN Reason: Itching Docusate Sodium (Colace) 100 mg PO BID [facility] Last Admin: 10/04/17 08:13 Dose: 100 mg Admin: 10/04/17 04:22 Dose: Famotidine (Pepcid) 40 mg PO DAILY [facility] Last Admin: 10/04/17 08:13 Dose: 40 mg Fentanyl (Sublimaze) 50 mcg IVPUSH Q5M PRN PRN Reason: Pain (severe 7-10) Stop: 10/04/17 14:26 Fish Oil (Fish Oil) 1 gm PO DAILY [facility] Last Admin: 10/04/17 08:13 Dose: 1 gm Ropivacaine 49.25 ml/Ketorolac Tromethamine 30 mg/Epinephrine HCl 0.5 mg/ Clonidine HCl 80 mcg/ Sodium Chloride 100 mls @ 50 mls/sec INJECT ASDIRECTED [facility] Tranexamic Acid 4,000 mg/ (Sodium Chloride) 140 mls @ 600 mls/hr IV ASDIRECTED [facility] Acetaminophen 1,000 mg/ Premix 100 mls @ 400 mls/hr IV Q8H [facility] Stop: 10/04/17 12:14 Morphine Sulfate (Morphine) 1 - 3 mg IVPUSH Q3H PRN PRN Reason: Pain Ondansetron HCl (Zofran) 4 mg IV Q6HR PRN PRN Reason: NAUSEA/VOMITING Oxycodone HCl (Oxycontin) 10 mg PO Q12HR [facility] Last Admin: 10/04/17 08:12 Dose: 10 mg Admin: 10/04/17 04:23 Dose: Scopolamine (Transderm-Scop) 1.5 mg TRDERM ONARRIVE [facility] Last Admin: 10/03/17 12:17 Dose: 1.5 mg Sodium Chloride (Saline Flush) 10 ml FLUSH ASDIRECTED PRN PRN Reason: Keep Vein Open Sodium Chloride (Saline Flush) 2.5 ml FLUSH ASDIRECTED PRN PRN Reason: Keep Vein Open - Assessment Assessment (Free Text/Narrative):: 71 yr old male POD# 1 left TKA. Doing well. Hemodynamics stable. Has been OOB, still needs to work with PT. - Plan Plan (Free Text/Narrative):: Remove peraza this am Diet as tolerated, SLIV PO pain regimen PT to see Encourage IS, OOB, and ambulation Possible discharge later today if continues to do well Will review with Dr. Garcia <Janene Garcia R - Last Filed: 10/04/17 17:14> - Patient Data Vitals - Most Recent: Last Vital Signs Temp 97.2 F 10/04/17 12:00 Pulse 72 10/04/17 12:00 Resp 22 H 10/04/17 12:00 BP 142/60 H 10/04/17 12:00 Pulse Ox 93 L 10/04/17 12:00 I&O - Last 24 Hours: Intake & Output 10/04/17 10/04/17 10/04/17 06:59 14:59 22:59 Intake Total 1549 600 Output Total 950 Balance 599 600 Lab Results Last 24 Hrs: Laboratory Results - last 24 hr 10/04/17 Range/Units 06:03 Hgb 12.1 L (13.0-17.0) g/dL Hct 36.6 L (38.0-50.0) % Med Orders - Current: Current Medications Al Hydroxide/Mg Hydroxide (Mag-Al Plus) 30 ml PO Q4H PRN PRN Reason: indigestion Amlodipine Besylate (Norvasc) 5 mg PO ACBREAKFAST [facility] Last Admin: 10/04/17 09:27 Dose: 5 mg Aspirin (Aspirin) 325 mg PO BID [facility] Last Admin: 10/04/17 08:12 Dose: 325 mg Bisacodyl (Dulcolax) 10 mg RECTAL DAILY PRN PRN Reason: Constipation Celecoxib (Celebrex) 200 mg PO BID [facility] Last Admin: 10/04/17 08:12 Dose: 200 mg Diphenhydramine HCl (Benadryl) 25 - 50 mg PO Q6H PRN PRN Reason: Itching Docusate Sodium (Colace) 100 mg PO BID [facility] Last Admin: 10/04/17 08:13 Dose: 100 mg Famotidine (Pepcid) 40 mg PO DAILY [facility] Last Admin: 10/04/17 08:13 Dose: 40 mg Fish Oil (Fish Oil) 1 gm PO DAILY [facility] Last Admin: 10/04/17 08:13 Dose: 1 gm Ropivacaine 49.25 ml/Ketorolac Tromethamine 30 mg/Epinephrine HCl 0.5 mg/ Clonidine HCl 80 mcg/ Sodium Chloride 100 mls @ 50 mls/sec INJECT ASDIRECTED [facility] Tranexamic Acid 4,000 mg/ (Sodium Chloride) 140 mls @ 600 mls/hr IV ASDIRECTED [facility] Morphine Sulfate (Morphine) 1 - 3 mg IVPUSH Q3H PRN PRN Reason: Pain Ondansetron HCl (Zofran) 4 mg IV Q6HR PRN PRN Reason: NAUSEA/VOMITING Last Admin: 10/04/17 12:24 Dose: 4 mg Oxycodone HCl (Oxycontin) 10 mg PO Q12HR [facility] Last Admin: 10/04/17 08:12 Dose: 10 mg Oxycodone/Acetaminophen (Percocet 325-5 Mg) 1 - 2 tab PO Q4H PRN PRN Reason: Pain Last Admin: 10/04/17 13:18 Dose: 2 tab Scopolamine (Transderm-Scop) 1.5 mg TRDERM ONARRIVE [facility] Last Admin: 10/03/17 12:17 Dose: 1.5 mg Sodium Chloride (Saline Flush) 10 ml FLUSH ASDIRECTED PRN PRN Reason: Keep Vein Open Sodium Chloride (Saline Flush) 2.5 ml FLUSH ASDIRECTED PRN PRN Reason: Keep Vein Open Discontinued Medications Ephedrine Sulfate (Ephedrine Sulfate) Confirm Administered Dose 50 mg .ROUTE .K-MED ONE Stop: 10/03/17 12:06 Famotidine (Pepcid) 40 mg IVPUSH ONARRIVE [facility] Last Admin: 10/03/17 12:16 Dose: 40 mg Fentanyl (Sublimaze) Confirm Administered Dose 100 mcg .ROUTE .STK-MED ONE Stop: 10/03/17 11:59 Fentanyl (Sublimaze) 50 mcg IVPUSH Q5M PRN PRN Reason: Pain (severe 7-10) Stop: 10/04/17 14:26 Acetaminophen 1,000 mg/ Premix 100 mls @ 400 mls/hr IV ONARRIVE [facility] Last Admin: 10/03/17 12:20 Dose: 400 mls/hr Cefazolin Sodium/Dextrose 2 gm (/ Premix) 50 mls @ 100 mls/hr IV ONCALL [facility] Lactated Ringer's (Ringers, Lactated) 1,000 mls @ 100 mls/hr IV ASDIRECTED [facility] Last Admin: 10/04/17 05:37 Dose: 100 mls/hr Acetaminophen 1,000 mg/ Premix 100 mls @ 400 mls/hr IV Q6H [facility] Stop: 10/04/17 06:44 Last Admin: 10/04/17 10:31 Dose: Not Given Cefazolin Sodium/Dextrose 2 gm (/ Premix) 50 mls @ 100 mls/hr IV Q8H [facility] Stop: 10/04/17 05:29 Last Admin: 10/04/17 04:57 Dose: 100 mls/hr Acetaminophen (Ofirmev) Confirm Administered Dose 100 mls @ as directed IV .K- MED [facility] Stop: 10/03/17 21:26 Last Admin: 10/04/17 07:53 Dose: Not Given Acetaminophen 1,000 mg/ Premix 100 mls @ 400 mls/hr IV Q8H [facility] Stop: 10/04/17 12:14 Last Admin: 10/04/17 11:34 Dose: 400 mls/hr Ketorolac Tromethamine (Toradol) 30 mg IVPUSH ONARRIVE [facility] Last Admin: 10/03/17 12:18 Dose: 30 mg Ketorolac Tromethamine (Toradol) 30 mg IVPUSH Q6H [facility] Stop: 10/04/17 05:00 Last Admin: 10/04/17 04:26 Dose: Not Given Labetalol HCl (Normodyne) Confirm Administered Dose 100 mg .ROUTE .STK-MED ONE Stop: 10/03/17 14:08 Lidocaine (Xylocaine-Mpf 2%) Confirm Administered Dose 10 ml .ROUTE .STK-MED ONE Stop: 10/03/17 11:59 Midazolam HCl (Versed 1 Mg/Ml) Confirm Administered Dose 2 mg .ROUTE .STK-MED ONE Stop: 10/03/17 12:00 Morphine Sulfate (Morphine Strainer Cleaner 30 Mg In 30 Ml) Confirm Administered Dose 30 mg .ROUTE .STK-MED ONE Stop: 10/03/17 15:03 Last Admin: 10/04/17 10:30 Dose: Not Given Morphine Sulfate (Morphine Strainer Cleaner 30 Mg In 30 Ml) 30 mg IV ASDIRECTED [facility]; Protocol Stop: 10/04/17 08:00 Oxycodone HCl (Oxycontin) 10 mg PO ONARRIVE [facility] Last Admin: 10/03/17 12:15 Dose: 10 mg Oxycodone HCl (Oxycodone) 5 - 10 mg PO Q4H PRN PRN Reason: Pain Stop: 10/04/17 08:00 Last Admin: 10/04/17 04:47 Dose: 10 mg Oxycodone HCl (Oxycodone) Confirm Administered Dose 10 mg .ROUTE .STK-MED ONE Stop: 10/03/17 18:21 Last Admin: 10/04/17 10:31 Dose: Not Given Propofol (Diprivan 20 Ml) Confirm Administered Dose 400 mg .ROUTE .STK-MED ONE Stop: 10/03/17 11:59 Propofol (Diprivan 20 Ml) Confirm Administered Dose 200 mg .ROUTE .STK-MED ONE Stop: 10/03/17 13:59 Propofol (Diprivan 20 Ml) Confirm Administered Dose 200 mg .ROUTE .STK-MED ONE Stop: 10/03/17 14:25 Tranexamic Acid (Cyklokapron) Confirm Administered Dose 4,000 mg .ROUTE .STK- MED ONE Stop: 10/03/17 07:43 - My Orders Last 24 Hours: Active Orders 24 hr Category Date Time Status Patient Status [ADT] Routine ADT 10/04/17 16:23 Active Urinary Catheter Removal [RC] Per Unit Routine Care 10/04/17 07:57 Active Regular Diet [DIET] Diet 10/04/17 Breakfast Active HEMOGLOBIN/HEMATOCRIT,HH [HEME] DAILY Lab 10/05/17 06:00 Ordered HEMOGLOBIN/HEMATOCRIT,HH [HEME] DAILY Lab 10/06/17 06:00 Ordered Acetaminophen/oxyCODONE [Percocet 325-5 MG] Med 10/04/17 11:51 Active 1 - 2 tab PO Q4H PRN Aspirin Med 10/04/17 09:00 Active 325 mg PO BID Celecoxib [CeleBREX] Med 10/04/17 09:00 Active 200 mg PO BID Docusate Sodium [Colace] Med 10/03/17 21:00 Active 100 mg PO BID Famotidine [Pepcid] Med 10/04/17 09:00 Active 40 mg PO DAILY Fish Oil/Lipan-3 Fatty Acids [Fish Oil] Med 10/04/17 09:00 Active 1 gm PO DAILY Morphine Med 10/04/17 08:00 Active 1 - 3 mg IVPUSH Q3H PRN Sodium Chloride 0.9% [Saline Flush] Med 10/04/17 07:57 Active 10 ml FLUSH ASDIRECTED PRN Sodium Chloride 0.9% [Saline Flush] Med 10/04/17 07:57 Active 2.5 ml FLUSH ASDIRECTED PRN amLODIPine [Norvasc] Med 10/04/17 08:35 Active 5 mg PO ACBREAKFAST oxyCODONE ER [OxyCONTIN] Med 10/03/17 21:00 Active 10 mg PO Q12HR Convert IV to Saline Lock [OM.PC] Routine Oth 10/04/17 07:57 Ordered Medication Orders Al Hydroxide/Mg Hydroxide (Mag-Al Plus) 30 ml PO Q4H PRN PRN Reason: indigestion Amlodipine Besylate (Norvasc) 5 mg PO ACBREAKFAST [facility] Last Admin: 10/04/17 09:27 Dose: 5 mg Aspirin (Aspirin) 325 mg PO BID [facility] Last Admin: 10/04/17 08:12 Dose: 325 mg Bisacodyl (Dulcolax) 10 mg RECTAL DAILY PRN PRN Reason: Constipation Celecoxib (Celebrex) 200 mg PO BID [facility] Last Admin: 10/04/17 08:12 Dose: 200 mg Diphenhydramine HCl (Benadryl) 25 - 50 mg PO Q6H PRN PRN Reason: Itching Docusate Sodium (Colace) 100 mg PO BID [facility] Last Admin: 10/04/17 08:13 Dose: 100 mg Admin: 10/04/17 04:22 Dose: Famotidine (Pepcid) 40 mg PO DAILY [facility] Last Admin: 10/04/17 08:13 Dose: 40 mg Fish Oil (Fish Oil) 1 gm PO DAILY [facility] Last Admin: 10/04/17 08:13 Dose: 1 gm Ropivacaine 49.25 ml/Ketorolac Tromethamine 30 mg/Epinephrine HCl 0.5 mg/ Clonidine HCl 80 mcg/ Sodium Chloride 100 mls @ 50 mls/sec INJECT ASDIRECTED [facility] Tranexamic Acid 4,000 mg/ (Sodium Chloride) 140 mls @ 600 mls/hr IV ASDIRECTED [facility] Morphine Sulfate (Morphine) 1 - 3 mg IVPUSH Q3H PRN PRN Reason: Pain Ondansetron HCl (Zofran) 4 mg IV Q6HR PRN PRN Reason: NAUSEA/VOMITING Last Admin: 10/04/17 12:24 Dose: 4 mg Oxycodone HCl (Oxycontin) 10 mg PO Q12HR [facility] Last Admin: 10/04/17 08:12 Dose: 10 mg Admin: 10/04/17 04:23 Dose: Oxycodone/Acetaminophen (Percocet 325-5 Mg) 1 - 2 tab PO Q4H PRN PRN Reason: Pain Last Admin: 10/04/17 13:18 Dose: 2 tab Scopolamine (Transderm-Scop) 1.5 mg TRDERM ONARRIVE [facility] Last Admin: 10/03/17 12:17 Dose: 1.5 mg Sodium Chloride (Saline Flush) 10 ml FLUSH ASDIRECTED PRN PRN Reason: Keep Vein Open Sodium Chloride (Saline Flush) 2.5 ml FLUSH ASDIRECTED PRN PRN Reason: Keep Vein Open - Plan Plan (Free Text/Narrative):: [id number] patient seen and examined. Agree with above note. Pain mobilizing slowly with PT. Still with some nausea. Pain requires IV medication. Hgb stable. VSS, afeb Dressing dry/intact. NVI. 1. continue mobilization and PT--I feel an additional day would be beneficial, as he is unsafe to go home at his current level of activity 2. continue current pain regimen--try to use po pain meds only 3. ASA/SCD for DVT prophylaxis 4. plan d/ch tomorrow if improved 5. change to inpatient status rrk
[2017-10-04] MEDS: amLODIPine 5 MG Tab PO SCH (09:27)
[2017-10-04] MEDS ORDERED: Acetaminophen 1,000 MG in Premix Bag 1 BAG IV SCH (12:00)
[2017-10-04] MEDS: Ondansetron 4 MG/2 ML SDV IV PRN (12:24)
[2017-10-04] MEDS: Acetaminophen/oxyCODONE 325-5 MG Tab PO PRN ×2 (13:18→18:21)
[2017-10-05] MEDS: Acetaminophen/oxyCODONE 325-5 MG Tab PO PRN ×2 (03:02→14:47)
[2017-10-05] MEDS: Ondansetron 4 MG/2 ML SDV IV PRN (07:57)
[2017-10-05] MEDS: Fish Oil/Omega-3 Fatty Acids 1 Gm Cap PO SCH (08:03)
[2017-10-05] MEDS: Docusate Sodium 100 MG Cap PO SCH (08:03)
[2017-10-05] MEDS: Famotidine 20 MG Tab PO SCH (08:03)
[2017-10-05] MEDS: Celecoxib 100 MG Cap PO SCH (08:03)
[2017-10-05] MEDS: Aspirin 325 MG Tab PO SCH (08:03)
[2017-10-05] MEDS: amLODIPine 5 MG Tab PO SCH (08:07)
--- NOTE | 2017-10-05 08:13 | PCM.SURGPN ---
- General Info Date of Service: 10/05/17 Date of Surgery/Procedure: 10/03/17 POD#: 2 (Pain is controlled. Still having some intermittent lightheadedness. Worked well with PT yesterday. Did have episode of emesis overnight. Some nausea this am. Denies fever, chills, chest pain, or SOB. Voiding on own.) - Patient Data Vitals - Most Recent: Last Vital Signs Temp 37.1 C 10/05/17 04:00 Pulse 84 10/05/17 04:00 Resp 16 10/05/17 04:00 BP 152/77 H 10/05/17 08:07 Pulse Ox 94 L 10/05/17 04:00 Weight - Most Recent: 102.058 kg I&O - Last 24 Hours: Intake & Output 10/04/17 10/05/17 10/05/17 22:59 06:59 14:59 Intake Total 800 250 Output Total 0 Balance 800 250 Lab Results Last 24 Hrs: Laboratory Results - last 24 hr 10/05/17 Range/Units 05:35 Hgb 11.7 L (13.0-17.0) g/dL Hct 35.1 L (38.0-50.0) % Med Orders - Current: Current Medications Al Hydroxide/Mg Hydroxide (Mag-Al Plus) 30 ml PO Q4H PRN PRN Reason: indigestion Amlodipine Besylate (Norvasc) 5 mg PO ACBREAKFAST [facility] Last Admin: 10/05/17 08:07 Dose: 5 mg Aspirin (Aspirin) 325 mg PO BID [facility] Last Admin: 10/05/17 08:03 Dose: 325 mg Bisacodyl (Dulcolax) 10 mg RECTAL DAILY PRN PRN Reason: Constipation Celecoxib (Celebrex) 200 mg PO BID [facility] Last Admin: 10/05/17 08:03 Dose: 200 mg Diphenhydramine HCl (Benadryl) 25 - 50 mg PO Q6H PRN PRN Reason: Itching Docusate Sodium (Colace) 100 mg PO BID [facility] Last Admin: 10/05/17 08:03 Dose: 100 mg Famotidine (Pepcid) 40 mg PO DAILY [facility] Last Admin: 10/05/17 08:03 Dose: 40 mg Fish Oil (Fish Oil) 1 gm PO DAILY [facility] Last Admin: 10/05/17 08:03 Dose: 1 gm Ropivacaine 49.25 ml/Ketorolac Tromethamine 30 mg/Epinephrine HCl 0.5 mg/ Clonidine HCl 80 mcg/ Sodium Chloride 100 mls @ 50 mls/sec INJECT ASDIRECTED [facility] Tranexamic Acid 4,000 mg/ (Sodium Chloride) 140 mls @ 600 mls/hr IV ASDIRECTED [facility] Morphine Sulfate (Morphine) 1 - 3 mg IVPUSH Q3H PRN PRN Reason: Pain Ondansetron HCl (Zofran) 4 mg IV Q6HR PRN PRN Reason: NAUSEA/VOMITING Last Admin: 10/05/17 07:57 Dose: 4 mg Oxycodone/Acetaminophen (Percocet 325-5 Mg) 1 - 2 tab PO Q4H PRN PRN Reason: Pain Last Admin: 10/05/17 03:02 Dose: 2 tab Scopolamine (Transderm-Scop) 1.5 mg TRDERM ONARRIVE [facility] Last Admin: 10/03/17 12:17 Dose: 1.5 mg Sodium Chloride (Saline Flush) 10 ml FLUSH ASDIRECTED PRN PRN Reason: Keep Vein Open Sodium Chloride (Saline Flush) 2.5 ml FLUSH ASDIRECTED PRN PRN Reason: Keep Vein Open Discontinued Medications Ephedrine Sulfate (Ephedrine Sulfate) Confirm Administered Dose 50 mg .ROUTE .STK-MED ONE Stop: 10/03/17 12:06 Famotidine (Pepcid) 40 mg IVPUSH ONARRIVE [facility] Last Admin: 10/03/17 12:16 Dose: 40 mg Fentanyl (Sublimaze) Confirm Administered Dose 100 mcg .ROUTE .STK-MED ONE Stop: 10/03/17 11:59 Fentanyl (Sublimaze) 50 mcg IVPUSH Q5M PRN PRN Reason: Pain (severe 7-10) Stop: 10/04/17 14:26 Acetaminophen 1,000 mg/ Premix 100 mls @ 400 mls/hr IV ONARRIVE [facility] Last Admin: 10/03/17 12:20 Dose: 400 mls/hr Cefazolin Sodium/Dextrose 2 gm (/ Premix) 50 mls @ 100 mls/hr IV ONCALL [facility] Lactated Ringer's (Ringers, Lactated) 1,000 mls @ 100 mls/hr IV ASDIRECTED [facility] Last Admin: 10/04/17 05:37 Dose: 100 mls/hr Acetaminophen 1,000 mg/ Premix 100 mls @ 400 mls/hr IV Q6H [facility] Stop: 10/04/17 06:44 Last Admin: 10/04/17 10:31 Dose: Not Given Cefazolin Sodium/Dextrose 2 gm (/ Premix) 50 mls @ 100 mls/hr IV Q8H [facility] Stop: 10/04/17 05:29 Last Admin: 10/04/17 04:57 Dose: 100 mls/hr Acetaminophen (Ofirmev) Confirm Administered Dose 100 mls @ as directed IV .STK- MED ONE Stop: 10/03/17 21:26 Last Admin: 10/04/17 07:53 Dose: Not Given Acetaminophen 1,000 mg/ Premix 100 mls @ 400 mls/hr IV Q8H [facility] Stop: 10/04/17 12:14 Last Admin: 10/04/17 11:34 Dose: 400 mls/hr Ketorolac Tromethamine (Toradol) 30 mg IVPUSH ONARRIVE [facility] Last Admin: 10/03/17 12:18 Dose: 30 mg Ketorolac Tromethamine (Toradol) 30 mg IVPUSH Q6H [facility] Stop: 10/04/17 05:00 Last Admin: 10/04/17 04:26 Dose: Not Given Labetalol HCl (Normodyne) Confirm Administered Dose 100 mg .ROUTE .STK-MED ONE Stop: 10/03/17 14:08 Lidocaine (Xylocaine-Mpf 2%) Confirm Administered Dose 10 ml .ROUTE .STK-MED ONE Stop: 10/03/17 11:59 Midazolam HCl (Versed 1 Mg/Ml) Confirm Administered Dose 2 mg .ROUTE .STK-MED ONE Stop: 10/03/17 12:00 Morphine Sulfate (Morphine Cereal Popper 30 Mg In 30 Ml) Confirm Administered Dose 30 mg .ROUTE .STK-MED ONE Stop: 10/03/17 15:03 Last Admin: 10/04/17 10:30 Dose: Not Given Morphine Sulfate (Morphine Cereal Popper 30 Mg In 30 Ml) 30 mg IV ASDIRECTED [facility]; Protocol Stop: 10/04/17 08:00 Oxycodone HCl (Oxycontin) 10 mg PO ONARRIVE [facility] Last Admin: 10/03/17 12:15 Dose: 10 mg Oxycodone HCl (Oxycodone) 5 - 10 mg PO Q4H PRN PRN Reason: Pain Stop: 10/04/17 08:00 Last Admin: 10/04/17 04:47 Dose: 10 mg Oxycodone HCl (Oxycontin) 10 mg PO Q12HR [facility] Last Admin: 10/04/17 20:21 Dose: 10 mg Oxycodone HCl (Oxycodone) Confirm Administered Dose 10 mg .ROUTE .STK-MED ONE Stop: 10/03/17 18:21 Last Admin: 10/04/17 10:31 Dose: Not Given Propofol (Diprivan 20 Ml) Confirm Administered Dose 400 mg .ROUTE .STK-MED ONE Stop: 10/03/17 11:59 Propofol (Diprivan 20 Ml) Confirm Administered Dose 200 mg .ROUTE .STK-MED ONE Stop: 10/03/17 13:59 Propofol (Diprivan 20 Ml) Confirm Administered Dose 200 mg .ROUTE .STK-MED ONE Stop: 10/03/17 14:25 Tranexamic Acid (Cyklokapron) Confirm Administered Dose 4,000 mg .ROUTE .STK- MED ONE Stop: 10/03/17 07:43 - Exam Wound/Incisions: Dressing Dry and Intact General: Alert, No Acute Distress Lungs: Clear to Auscultation Cardiovascular: Regular Rate GI/Abdominal Exam: Soft, Non-Tender Extremities: Other (Calves bilaterally non-tender and soft. Left knee appropriately tender. Mepilex dressing intact. Gross motor and sensation intact. ) Skin: Warm, Dry - Problem List Review Problem List Initiated/Reviewed/Updated: Yes - My Orders Last 24 Hours: Active Orders 24 hr Category Date Time Status Patient Status [ADT] Routine ADT 10/04/17 16:23 Active HEMOGLOBIN/HEMATOCRIT,HH [HEME] DAILY Lab 10/06/17 06:00 Ordered Acetaminophen/oxyCODONE [Percocet 325-5 MG] Med 10/04/17 11:51 Active 1 - 2 tab PO Q4H PRN Aspirin Med 10/04/17 09:00 Active 325 mg PO BID Celecoxib [CeleBREX] Med 10/04/17 09:00 Active 200 mg PO BID Famotidine [Pepcid] Med 10/04/17 09:00 Active 40 mg PO DAILY Fish Oil/[place]-3 Fatty Acids [Fish Oil] Med 10/04/17 09:00 Active 1 gm PO DAILY Morphine Med 10/04/17 08:00 Active 1 - 3 mg IVPUSH Q3H PRN Sodium Chloride 0.9% [Saline Flush] Med 10/04/17 07:57 Active 10 ml FLUSH ASDIRECTED PRN Sodium Chloride 0.9% [Saline Flush] Med 10/04/17 07:57 Active 2.5 ml FLUSH ASDIRECTED PRN amLODIPine [Norvasc] Med 10/04/17 08:35 Active 5 mg PO ACBREAKFAST Convert IV to Saline Lock [OM.PC] Routine Oth 10/04/17 07:57 Ordered Medication Orders Al Hydroxide/Mg Hydroxide (Mag-Al Plus) 30 ml PO Q4H PRN PRN Reason: indigestion Amlodipine Besylate (Norvasc) 5 mg PO ACBREAKFAST [facility] Last Admin: 10/05/17 08:07 Dose: 5 mg Admin: 10/04/17 09:27 Dose: 5 mg Aspirin (Aspirin) 325 mg PO BID [facility] Last Admin: 10/05/17 08:03 Dose: 325 mg Admin: 10/04/17 20:22 Dose: 325 mg Admin: 10/04/17 08:12 Dose: 325 mg Bisacodyl (Dulcolax) 10 mg RECTAL DAILY PRN PRN Reason: Constipation Celecoxib (Celebrex) 200 mg PO BID [facility] Last Admin: 10/05/17 08:03 Dose: 200 mg Admin: 10/04/17 20:22 Dose: 200 mg Admin: 10/04/17 08:12 Dose: 200 mg Diphenhydramine HCl (Benadryl) 25 - 50 mg PO Q6H PRN PRN Reason: Itching Docusate Sodium (Colace) 100 mg PO BID [facility] Last Admin: 10/05/17 08:03 Dose: 100 mg Admin: 10/04/17 20:23 Dose: 100 mg Admin: 10/04/17 08:13 Dose: 100 mg Admin: 10/04/17 04:22 Dose: Famotidine (Pepcid) 40 mg PO DAILY [facility] Last Admin: 10/05/17 08:03 Dose: 40 mg Admin: 10/04/17 08:13 Dose: 40 mg Fish Oil (Fish Oil) 1 gm PO DAILY [facility] Last Admin: 10/05/17 08:03 Dose: 1 gm Admin: 10/04/17 08:13 Dose: 1 gm Ropivacaine 49.25 ml/Ketorolac Tromethamine 30 mg/Epinephrine HCl 0.5 mg/ Clonidine HCl 80 mcg/ Sodium Chloride 100 mls @ 50 mls/sec INJECT ASDIRECTED [facility] Tranexamic Acid 4,000 mg/ (Sodium Chloride) 140 mls @ 600 mls/hr IV ASDIRECTED [facility] Morphine Sulfate (Morphine) 1 - 3 mg IVPUSH Q3H PRN PRN Reason: Pain Ondansetron HCl (Zofran) 4 mg IV Q6HR PRN PRN Reason: NAUSEA/VOMITING Last Admin: 10/05/17 07:57 Dose: 4 mg Admin: 10/04/17 12:24 Dose: 4 mg Oxycodone/Acetaminophen (Percocet 325-5 Mg) 1 - 2 tab PO Q4H PRN PRN Reason: Pain Last Admin: 10/05/17 03:02 Dose: 2 tab Admin: 10/04/17 18:21 Dose: 2 tab Admin: 10/04/17 13:18 Dose: 2 tab Scopolamine (Transderm-Scop) 1.5 mg TRDERM ONARRIVE [facility] Last Admin: 10/03/17 12:17 Dose: 1.5 mg Sodium Chloride (Saline Flush) 10 ml FLUSH ASDIRECTED PRN PRN Reason: Keep Vein Open Sodium Chloride (Saline Flush) 2.5 ml FLUSH ASDIRECTED PRN PRN Reason: Keep Vein Open - Assessment Assessment (Free Text/Narrative):: 71 yr old male POD#2 left TKA. Emesis last night and some nausea this am, otherwise doing well. No tachycardia. BP 110-160s. Up ambulating and working with pt. Pain controlled. - Plan Plan (Free Text/Narrative):: Diet as tolerated Continue ambulation and OOB Continue to work with PT ASA BID PO pain regimen and prn nausea medications Anticipate discharge later today
--- NOTE | 2017-10-05 08:25 | PCM.SURGPN ---
- General Info Date of Service: 10/05/17 Date of Surgery/Procedure: 10/03/17 POD#: 2 Functional Status: Reports: Pain Controlled, Tolerating Diet, Ambulating, Urinating - Review of Systems Pulmonary: Reports: No Symptoms. Denies: Shortness of Breath Cardiovascular: Reports: Lightheadedness. Denies: Chest Pain, Palpitations Musculoskeletal: Reports: Leg Pain Systems Review Comment:: pt up to side of bed for breakfast tolerating PO intake, no nausea/vomiting continues to c/o lightheadedness when up feels steady with FWW did well with PT yesterday no specific concerns today - Patient Data Vitals - Most Recent: Last Vital Signs Temp 98.8 F 10/05/17 04:00 Pulse 84 10/05/17 04:00 Resp 16 10/05/17 04:00 BP 152/77 H 10/05/17 08:07 Pulse Ox 94 L 10/05/17 04:00 Weight - Most Recent: 102.058 kg I&O - Last 24 Hours: Intake & Output 10/04/17 10/05/17 10/05/17 22:59 06:59 14:59 Intake Total 800 250 Output Total 0 Balance 800 250 Lab Results Last 24 Hrs: Laboratory Results - last 24 hr 10/05/17 Range/Units 05:35 Hgb 11.7 L (13.0-17.0) g/dL Hct 35.1 L (38.0-50.0) % Med Orders - Current: Current Medications Al Hydroxide/Mg Hydroxide (Mag-Al Plus) 30 ml PO Q4H PRN PRN Reason: indigestion Amlodipine Besylate (Norvasc) 5 mg PO ACBREAKFAST [facility] Last Admin: 10/05/17 08:07 Dose: 5 mg Aspirin (Aspirin) 325 mg PO BID [facility] Last Admin: 10/05/17 08:03 Dose: 325 mg Bisacodyl (Dulcolax) 10 mg RECTAL DAILY PRN PRN Reason: Constipation Celecoxib (Celebrex) 200 mg PO BID [facility] Last Admin: 10/05/17 08:03 Dose: 200 mg Diphenhydramine HCl (Benadryl) 25 - 50 mg PO Q6H PRN PRN Reason: Itching Docusate Sodium (Colace) 100 mg PO BID [facility] Last Admin: 10/05/17 08:03 Dose: 100 mg Famotidine (Pepcid) 40 mg PO DAILY [facility] Last Admin: 10/05/17 08:03 Dose: 40 mg Fish Oil (Fish Oil) 1 gm PO DAILY [facility] Last Admin: 10/05/17 08:03 Dose: 1 gm Ropivacaine 49.25 ml/Ketorolac Tromethamine 30 mg/Epinephrine HCl 0.5 mg/ Clonidine HCl 80 mcg/ Sodium Chloride 100 mls @ 50 mls/sec INJECT ASDIRECTED [facility] Tranexamic Acid 4,000 mg/ (Sodium Chloride) 140 mls @ 600 mls/hr IV ASDIRECTED [facility] Morphine Sulfate (Morphine) 1 - 3 mg IVPUSH Q3H PRN PRN Reason: Pain Ondansetron HCl (Zofran) 4 mg IV Q6HR PRN PRN Reason: NAUSEA/VOMITING Last Admin: 10/05/17 07:57 Dose: 4 mg Oxycodone/Acetaminophen (Percocet 325-5 Mg) 1 - 2 tab PO Q4H PRN PRN Reason: Pain Last Admin: 10/05/17 03:02 Dose: 2 tab Scopolamine (Transderm-Scop) 1.5 mg TRDERM ONARRIVE [facility] Last Admin: 10/03/17 12:17 Dose: 1.5 mg Sodium Chloride (Saline Flush) 10 ml FLUSH ASDIRECTED PRN PRN Reason: Keep Vein Open Sodium Chloride (Saline Flush) 2.5 ml FLUSH ASDIRECTED PRN PRN Reason: Keep Vein Open Discontinued Medications Ephedrine Sulfate (Ephedrine Sulfate) Confirm Administered Dose 50 mg .ROUTE .STK-MED ONE Stop: 10/03/17 12:06 Famotidine (Pepcid) 40 mg IVPUSH ONARRIVE [facility] Last Admin: 10/03/17 12:16 Dose: 40 mg Fentanyl (Sublimaze) Confirm Administered Dose 100 mcg .ROUTE .STK-MED ONE Stop: 10/03/17 11:59 Fentanyl (Sublimaze) 50 mcg IVPUSH Q5M PRN PRN Reason: Pain (severe 7-10) Stop: 10/04/17 14:26 Acetaminophen 1,000 mg/ Premix 100 mls @ 400 mls/hr IV ONARRIVE [facility] Last Admin: 10/03/17 12:20 Dose: 400 mls/hr Cefazolin Sodium/Dextrose 2 gm (/ Premix) 50 mls @ 100 mls/hr IV ONCALL [facility] Lactated Ringer's (Ringers, Lactated) 1,000 mls @ 100 mls/hr IV ASDIRECTED [facility] Last Admin: 10/04/17 05:37 Dose: 100 mls/hr Acetaminophen 1,000 mg/ Premix 100 mls @ 400 mls/hr IV Q6H [facility] Stop: 10/04/17 06:44 Last Admin: 10/04/17 10:31 Dose: Not Given Cefazolin Sodium/Dextrose 2 gm (/ Premix) 50 mls @ 100 mls/hr IV Q8H [facility] Stop: 10/04/17 05:29 Last Admin: 10/04/17 04:57 Dose: 100 mls/hr Acetaminophen (Ofirmev) Confirm Administered Dose 100 mls @ as directed IV .STK- MED ONE Stop: 10/03/17 21:26 Last Admin: 10/04/17 07:53 Dose: Not Given Acetaminophen 1,000 mg/ Premix 100 mls @ 400 mls/hr IV Q8H [facility] Stop: 10/04/17 12:14 Last Admin: 10/04/17 11:34 Dose: 400 mls/hr Ketorolac Tromethamine (Toradol) 30 mg IVPUSH ONARRIVE [facility] Last Admin: 10/03/17 12:18 Dose: 30 mg Ketorolac Tromethamine (Toradol) 30 mg IVPUSH Q6H [facility] Stop: 10/04/17 05:00 Last Admin: 10/04/17 04:26 Dose: Not Given Labetalol HCl (Normodyne) Confirm Administered Dose 100 mg .ROUTE .STK-MED ONE Stop: 10/03/17 14:08 Lidocaine (Xylocaine-Mpf 2%) Confirm Administered Dose 10 ml .ROUTE .STK-MED ONE Stop: 10/03/17 11:59 Midazolam HCl (Versed 1 Mg/Ml) Confirm Administered Dose 2 mg .ROUTE .STK-MED ONE Stop: 10/03/17 12:00 Morphine Sulfate (Morphine [facility] 30 Mg In 30 Ml) Confirm Administered Dose 30 mg .ROUTE .STK-MED ONE Stop: 10/03/17 15:03 Last Admin: 10/04/17 10:30 Dose: Not Given Morphine Sulfate (Morphine [facility] 30 Mg In 30 Ml) 30 mg IV ASDIRECTED [facility]; Protocol Stop: 10/04/17 08:00 Oxycodone HCl (Oxycontin) 10 mg PO ONARRIVE [facility] Last Admin: 10/03/17 12:15 Dose: 10 mg Oxycodone HCl (Oxycodone) 5 - 10 mg PO Q4H PRN PRN Reason: Pain Stop: 10/04/17 08:00 Last Admin: 10/04/17 04:47 Dose: 10 mg Oxycodone HCl (Oxycontin) 10 mg PO Q12HR [facility] Last Admin: 10/04/17 20:21 Dose: 10 mg Oxycodone HCl (Oxycodone) Confirm Administered Dose 10 mg .ROUTE .STK-MED ONE Stop: 10/03/17 18:21 Last Admin: 10/04/17 10:31 Dose: Not Given Propofol (Diprivan 20 Ml) Confirm Administered Dose 400 mg .ROUTE .STK-MED ONE Stop: 10/03/17 11:59 Propofol (Diprivan 20 Ml) Confirm Administered Dose 200 mg .ROUTE .STK-MED ONE Stop: 10/03/17 13:59 Propofol (Diprivan 20 Ml) Confirm Administered Dose 200 mg .ROUTE .STK-MED ONE Stop: 10/03/17 14:25 Tranexamic Acid (Cyklokapron) Confirm Administered Dose 4,000 mg .ROUTE .STK- MED ONE Stop: 10/03/17 07:43 - Exam Wound/Incisions: Dressing Dry and Intact. No: Drainage, Erythema General: Alert, Oriented Cardiovascular: Regular Rate, Regular Rhythm Extremities: Other (exam LLE - at/ehl/gastroc 5/5, dp 2+, sensation intact distally) Physical Findings Comment:: vss, afeb hgb 11.7 - Problem List Review Problem List Initiated/Reviewed/Updated: Yes - My Orders Last 24 Hours: Active Orders 24 hr Category Date Time Status Patient Status [ADT] Routine ADT 10/04/17 16:23 Active HEMOGLOBIN/HEMATOCRIT,HH [HEME] DAILY Lab 10/06/17 06:00 Ordered Acetaminophen/oxyCODONE [Percocet 325-5 MG] Med 10/04/17 11:51 Active 1 - 2 tab PO Q4H PRN Aspirin Med 10/04/17 09:00 Active 325 mg PO BID Celecoxib [CeleBREX] Med 10/04/17 09:00 Active 200 mg PO BID Famotidine [Pepcid] Med 10/04/17 09:00 Active 40 mg PO DAILY Fish Oil/[place]-3 Fatty Acids [Fish Oil] Med 10/04/17 09:00 Active 1 gm PO DAILY Morphine Med 10/04/17 08:00 Active 1 - 3 mg IVPUSH Q3H PRN Sodium Chloride 0.9% [Saline Flush] Med 10/04/17 07:57 Active 10 ml FLUSH ASDIRECTED PRN Sodium Chloride 0.9% [Saline Flush] Med 10/04/17 07:57 Active 2.5 ml FLUSH ASDIRECTED PRN amLODIPine [Norvasc] Med 10/04/17 08:35 Active 5 mg PO ACBREAKFAST Convert IV to Saline Lock [OM.PC] Routine Oth 10/04/17 07:57 Ordered Medication Orders Al Hydroxide/Mg Hydroxide (Mag-Al Plus) 30 ml PO Q4H PRN PRN Reason: indigestion Amlodipine Besylate (Norvasc) 5 mg PO ACBREAKFAST [facility] Last Admin: 10/05/17 08:07 Dose: 5 mg Admin: 10/04/17 09:27 Dose: 5 mg Aspirin (Aspirin) 325 mg PO BID [facility] Last Admin: 10/05/17 08:03 Dose: 325 mg Admin: 10/04/17 20:22 Dose: 325 mg Admin: 10/04/17 08:12 Dose: 325 mg Bisacodyl (Dulcolax) 10 mg RECTAL DAILY PRN PRN Reason: Constipation Celecoxib (Celebrex) 200 mg PO BID [facility] Last Admin: 10/05/17 08:03 Dose: 200 mg Admin: 10/04/17 20:22 Dose: 200 mg Admin: 10/04/17 08:12 Dose: 200 mg Diphenhydramine HCl (Benadryl) 25 - 50 mg PO Q6H PRN PRN Reason: Itching Docusate Sodium (Colace) 100 mg PO BID [facility] Last Admin: 10/05/17 08:03 Dose: 100 mg Admin: 10/04/17 20:23 Dose: 100 mg Admin: 10/04/17 08:13 Dose: 100 mg Admin: 10/04/17 04:22 Dose: Famotidine (Pepcid) 40 mg PO DAILY [facility] Last Admin: 10/05/17 08:03 Dose: 40 mg Admin: 10/04/17 08:13 Dose: 40 mg Fish Oil (Fish Oil) 1 gm PO DAILY [facility] Last Admin: 10/05/17 08:03 Dose: 1 gm Admin: 10/04/17 08:13 Dose: 1 gm Ropivacaine 49.25 ml/Ketorolac Tromethamine 30 mg/Epinephrine HCl 0.5 mg/ Clonidine HCl 80 mcg/ Sodium Chloride 100 mls @ 50 mls/sec INJECT ASDIRECTED [facility] Tranexamic Acid 4,000 mg/ (Sodium Chloride) 140 mls @ 600 mls/hr IV ASDIRECTED [facility] Morphine Sulfate (Morphine) 1 - 3 mg IVPUSH Q3H PRN PRN Reason: Pain Ondansetron HCl (Zofran) 4 mg IV Q6HR PRN PRN Reason: NAUSEA/VOMITING Last Admin: 10/05/17 07:57 Dose: 4 mg Admin: 10/04/17 12:24 Dose: 4 mg Oxycodone/Acetaminophen (Percocet 325-5 Mg) 1 - 2 tab PO Q4H PRN PRN Reason: Pain Last Admin: 10/05/17 03:02 Dose: 2 tab Admin: 10/04/17 18:21 Dose: 2 tab Admin: 10/04/17 13:18 Dose: 2 tab Scopolamine (Transderm-Scop) 1.5 mg TRDERM ONARRIVE [facility] Last Admin: 10/03/17 12:17 Dose: 1.5 mg Sodium Chloride (Saline Flush) 10 ml FLUSH ASDIRECTED PRN PRN Reason: Keep Vein Open Sodium Chloride (Saline Flush) 2.5 ml FLUSH ASDIRECTED PRN PRN Reason: Keep Vein Open - Assessment Assessment (Free Text/Narrative):: POD#2 L TKA acute posthemorrhagic anemia - Plan Plan (Free Text/Narrative):: DC oxycontin and scopolamine patch for lightheadedness continue pain control continue PT and activity as tolerated dressing changed yesterday likely d/ch to home this afternoon
[2017-10-05] MEDS ORDERED: Morphine 4 MG/ML Syringe IVPUSH PRN (08:40)
[2017-10-05 15:25] VITALS: BP 154/65
--- NOTE | 2017-10-07 08:41 | PCM.SN ---
- Free Text/Narrative Note: d/ch summary #[id number]
--- NOTE | 2017-10-10 08:44 | DISCH ---
PATIENT ADMITTED ON: 10/03/2017 DATE OF DISCHARGE: 10/05/2017 PRIMARY CARE PHYSICIAN: Cricket Singh MD ADMITTING DIAGNOSIS: Degenerative joint disease, left knee, tricompartmental. OTHER MEDICAL DIAGNOSES: 1. Hypertension. 2. Sleep apnea. 3. History of prostate cancer. DISCHARGE DIAGNOSES: 1. Degenerative joint disease, left knee, tricompartmental. 2. Hypertension. 3. Sleep apnea. 4. History of prostate cancer. 5. Acute post hemorrhagic anemia. BRIEF HISTORY: Amadeo is a 71-year-old male, who has had progressive complaints of left knee pain. He has tried and failed conservative treatment. At that time, surgical treatment was recommended. On October 03, 2017, the patient underwent a left total knee arthroplasty using patient-specific instrumentation done by Dr. Janene Garcia. This was done under spinal anesthesia with sedation. Estimated blood loss was 50 milliliters. There were no complications. Upon completion of the procedure, the patient was transferred to the PACU and subsequently to Med/Surg for postoperative care. HOSPITAL COURSE: Postoperatively, the patient did well. His pain was controlled with combination of oral and IV pain medications. He received two doses of Ancef postoperatively for a total of 24 hours of antibiotic coverage. He did experience some lightheadedness with activity, which did improve with discontinuing OxyContin. Physical therapy followed him through his hospital stay. Aspirin 325 mg was started on postoperative day #1 as DVT prophylaxis. His vital signs have been stable. He has been afebrile. His hemoglobin on the morning of October 05 was 11.7. He feels comfortable with discharge to home. DISCHARGE MEDICATIONS: 1. Percocet 5/325. 2. Celebrex 200 mg. 3. Colace 100 mg. 4. Aspirin 325 mg. DISCHARGE INSTRUCTIONS: 1. Follow up in clinic 10 to 14 days from the date of procedure. This appointment has been made for the patient. 2. Outpatient physical therapy 2 to 3 times per week for 4 to 6 weeks. 3. No driving while taking narcotic pain medications. 4. Polar Care to the left knee as needed. 5. MACO hose, on in the morning, off in the evening. 6. He is to change the dressing over the weekend at home. He should place a new Aquacel dressing and leave that in place until followup in clinic. Should he have questions or concerns prior to followup, he has been advised to return to clinic or call. For complete medication reconciliation and discharge instructions, please refer back to the patient's EHR. LILLIE KAUR /[id number]
== END 2017-10-05 15:55 | disposition home or self-care (01) | DRG 560 ==
LOC: MW.SDS 11:31 → MW.MS 15:40 → MW.SDS 10-04 16:23
PROVIDERS: ADMIT Orthopaedic Surgery; ATTEND Orthopaedic Surgery
PROC: 0SRD0J9 Replacement of Left Knee Joint with Synthetic Substitute, Cemented, Open Approach (ICD-10-PCS; principal; 2017-10-03)
DX: M17.12 Unilateral primary osteoarthritis, left knee (principal); M25.762 Osteophyte, left knee; Z47.1 Aftercare following joint replacement surgery; D62 Acute posthemorrhagic anemia; Z85.46 Personal history of malignant neoplasm of prostate; G89.18 Other acute postprocedural pain; R42 Dizziness and giddiness; R11.2 Nausea with vomiting, unspecified; I10 Essential (primary) hypertension; F32.9 Major depressive disorder, single episode, unspecified; Z79.899 Other long term (current) drug therapy; Z96.652 Presence of left artificial knee joint
CPT/HCPCS: 27447; 36415 ×2; 73560; 85014; 85018; 86850; 86900; 86901; 97110; 97161; 97530; A9270 ×11; C1713; C1776 ×3; J0171; J0690; J0735; J1885 ×2; J2250; J2405; J2795; J3010; J7050; J7120 ×2; 01402; 88305; 88311; J2704

== ENCOUNTER 2019-01-15 06:31 | Day surgery (SDC) | payer MEDICARE, BC ==
[~2019-01-15 06:31] MED LIST changes: -Acetaminophen 1,000 MG in Premix Bag 1 BAG IV SCH; -Famotidine 20 MG/2 ML SDV IVPUSH SCH; -Ketorolac 30 MG/ML SDV IVPUSH SCH; +Lactated Ringers 1,000 ML IV SCH; -Ropivacaine 49.25 ML, Ketorolac 30 MG, EPINEPHrine 0.5 MG, cloNIDine 80 MCG in Sodium C... INJECT SCH; -Scopolamine 1.5 MG Transdermal Patch TRDERM SCH; -Tranexamic Acid 4,000 MG in Sodium Chloride 0.9% 100 ML IV SCH; -ceFAZolin 2 GM in Premix Bag 1 BAG IV SCH; -oxyCODONE ER 10 MG TAB.ER PO SCH
[2019-01-15] MEDS ORDERED: Lidocaine 2% 5 ML SDV ONE (07:30)
[2019-01-15] MEDS ORDERED: Propofol 200 MG/20 ML SDV ONE (07:30)
--- NOTE | 2019-01-15 08:23 | PCM.OPNOTE ---
- General Post-Op/Procedure Note Date of Surgery/Procedure: 01/15/19 Operative Procedure(s): Colonoscopy Pre Op Diagnosis: Personal history of colon polyps Post-Op Diagnosis: Mild sigmoid diverticulosis Anesthesia Technique: MAC (ASA II) Primary Surgeon: Chaim Johns Condition: Good Free Text/Narrative:: DICTATION [id number] CPT CODE 57759
[2019-01-15] MEDS ORDERED: Lactated Ringers 1,000 ML IV SCH (08:30)
--- NOTE | 2019-01-15 08:31 | PCM.PREANE ---
Preanesthetic Assessment - Anesthesia/Transfusion/Family Hx Anesthesia History: Prior Anesthesia Without Reaction Other Type of Anesthesia Reaction Comment: Nauseated post Knee arthroscopy, No known family hx: problems Family History of Anesthesia Reaction: No Transfusion History: Prior Transfusion Without Reaction Intubation History: Unknown - Review of Systems General: No Symptoms Pulmonary: No Symptoms Cardiovascular: No Symptoms - Physical Assessment Vital Signs: Last Vital Signs Temp 97.0 F 01/15/19 06:45 Pulse 77 01/15/19 06:45 Resp 16 01/15/19 06:45 BP 158/76 H 01/15/19 06:45 Pulse Ox 96 01/15/19 06:45 Height: 5 ft 6 in Weight: 99.79 kg ASA Class: 2 Mental Status: Alert & Oriented x3 Dentition: Reports: Partial ROM/Head Extension: Full Lungs: Clear to Auscultation, Normal Respiratory Effort Cardiovascular: Regular Rate, Regular Rhythm - Allergies Allergies/Adverse Reactions: Allergies Allergy/AdvReac Type Severity Reaction Status Date / Time Seasonal Allergy Mild Other Uncoded 10/03/17 12:46 Cat Dander Allergy Sneezing Uncoded 01/10/19 09:35 Walleye Allergy Hives Uncoded 10/03/17 12:46 - Blood Blood Available: No - Anesthesia Plan Pre-Op Medication Ordered: None - Acknowledgements Anesthesia Type Planned: General Anesthesia Pt an Appropriate Candidate for the Planned Anesthesia: Yes Alternatives and Risks of Anesthesia Discussed w Pt/Guardian: Yes Pt/Guardian Understands and Agrees with Anesthesia Plan: Yes PreAnesthesia Questionnaire HEENT History: Reports: Other (See Below) Other HEENT History: has reading glasses, had recent root canal Cardiovascular History: Reports: Hypertension Respiratory History: Reports: Sleep Apnea Other Respiratory History: states sleep apnea is "very mild"-does not use CPAP Gastrointestinal History: Reports: Colon Polyp Other Gastrointestinal History: occasional heartburn Genitourinary History: Reports: Prostate Disorder Other Genitourinary History: hx of prostate cancer Musculoskeletal History: Reports: Osteoarthritis Other Musculoskeletal History: hx: Hairline fracture to Left leg Neurological History: Reports: None Psychiatric History: Reports: None Endocrine/Metabolic History: Reports: Obesity/BMI 30+ Hematologic History: Reports: Blood Transfusion(s) Other Hematologic History: blood transfusion with prostatectomy Immunologic History: Reports: None Oncologic (Cancer) History: Reports: Prostate Dermatologic History: Reports: None - Past Surgical History Head Surgeries/Procedures: Reports: None HEENT Surgical History: Reports: Tonsillectomy GI Surgical History: Reports: Colonoscopy Male Surgical History: Reports: Prostatectomy Musculoskeletal Surgical History: Reports: Arthroscopic Knee, Hip Replacement, Knee Replacement Oncologic Surgical History: Reports: Other (See Below) Other Oncologic Surgeries/Procedures: hx of Radical Prostatectomy followed by radiation - SUBSTANCE USE Smoking Status *Q: Current Every Day Smoker Recreational Drug Use History: No - HOME MEDS Home Medications: Home Meds amLODIPine [Norvasc] 5 mg PO BID 03/21/15 [History] Omega3/Dha/Epa/Fish Oil/Vit D3 [Fish Oil + Vitamin D-3 Softgel] 1,000 mg PO DAILY 12/11/15 [History] Ibuprofen 200 mg PO ASDIRECTED PRN 01/10/19 [History] Viagra 50 - 100 mg PO ASDIRECTED PRN 01/10/19 [History] - CURRENT (IN HOUSE) MEDS Current Meds: Current Medications Lactated Ringer's (Ringers, Lactated) 1,000 mls @ 125 mls/hr IV ASDIRECTED JONATHAN Lactated Ringer's (Ringers, Lactated) 1,000 mls @ 125 mls/hr IV ASDIRECTED JONATHAN Discontinued Medications Lidocaine (Xylocaine-Mpf 2%) Confirm Administered Dose 5 ml .ROUTE .STK-MED ONE Stop: 01/15/19 07:31 Propofol (Diprivan 20 Ml) Confirm Administered Dose 400 mg .ROUTE .STK-MED ONE Stop: 01/15/19 07:31
[2019-01-15 09:06] VITALS: BP 130/70
--- NOTE | 2019-01-15 11:31 | OR ---
SURGEON: Chaim Johns M.D. DATE OF PROCEDURE: 01/15/2019 OPERATION PERFORMED: Colonoscopy. PRIMARY SURGEON: Chaim Johns M.D. ANESTHESIA: MAC. ASA CLASSIFICATION: II. PREOPERATIVE DIAGNOSIS: Personal history of colon polyps. POSTOPERATIVE DIAGNOSIS: Mild sigmoid diverticulosis with no polyps. DESCRIPTION OF PROCEDURE: The patient was taken to the endoscopy room and positioned on the endoscopy table in the left lateral decubitus position. Time-out was called for appropriate identification of the patient and procedure. Monitored anesthesia care was provided. The colonoscope was inserted into the rectum and advanced with minimal difficulty to the cecum where the colonoscope was retroflexed to visualize the ascending colon from below. The colonoscope was then straightened and slowly withdrawn. Cecum, ascending colon, hepatic flexure, transverse colon, splenic flexure, descending colon, sigmoid colon, and rectum were very well visualized. No tumors or polyps were identified. There was no evidence of inflammatory bowel disease or angiodysplasia. A few small scattered diverticula were noted in the sigmoid colon. No stricture, spasm, or bleeding was noted. The colonoscope was withdrawn to the rectum and retroflexed to visualize the anal orifice from above. Again, no tumors or polyps were seen, and there were no acute hemorrhoidal changes. The colonoscope was then straightened in the rectum, aspirated, and the colonoscope removed. The patient tolerated the procedure well and was taken to recovery room in stable condition. ANDRE KAUR /[id number]
--- NOTE | 2019-01-15 12:56 | PCM48HPAN ---
Post Anesthesia Note - EVALUATION WITHIN 48HRS OF ANESTHETIC Vital Signs in Normal Range: Yes Patient Participated in Evaluation: Yes Respiratory Function Stable: Yes Airway Patent: Yes Cardiovascular Function Stable: Yes Hydration Status Stable: Yes Pain Control Satisfactory: Yes Nausea and Vomiting Control Satisfactory: Yes Mental Status Recovered: Yes Vital Signs: Last Vital Signs Temp 97.5 F 01/15/19 08:45 Pulse 72 01/15/19 08:45 Resp 16 01/15/19 08:45 BP 130/70 01/15/19 08:45 Pulse Ox 95 01/15/19 08:45
--- NOTE | 2019-01-15 12:56 | PCM.POSTAN ---
POST ANESTHESIA ASSESSMENT - MENTAL STATUS Mental Status: Alert, Oriented - VITAL SIGNS Vital Signs: Last Vital Signs Temp 97.5 F 01/15/19 08:45 Pulse 72 01/15/19 08:45 Resp 16 01/15/19 08:45 BP 130/70 01/15/19 08:45 Pulse Ox 95 01/15/19 08:45 - RESPIRATORY Respiratory Status: Respiratory Rate WNL, Airway Patent, O2 Saturation Stable - CARDIOVASCULAR CV Status: Pulse Rate WNL, Blood Pressure Stable - GASTROINTESTINAL GI Status: No Symptoms - POST OP HYDRATION Hydration Status: Adequate & Stable
== END 2019-01-15 09:35 | disposition home or self-care (01) ==
LOC: MW.SDS 06:31
PROVIDERS: ATTEND Surgery
DX: Z12.11 Encounter for screening for malignant neoplasm of colon (principal); K57.30 Diverticulosis of large intestine without perforation or abscess without bleeding; I10 Essential (primary) hypertension; M19.90 Unspecified osteoarthritis, unspecified site; J30.2 Other seasonal allergic rhinitis; E66.9 Obesity, unspecified; Z68.37 Body mass index [BMI] 37.0-37.9, adult; Z86.010 Personal history of colon polyps; Z91.048 Other nonmedicinal substance allergy status; Z79.899 Other long term (current) drug therapy
CPT/HCPCS: G0121; J2001; J2704; J7120; 00812

== ENCOUNTER 2019-11-24 08:17 | Emergency (ER) | payer MEDICARE, BC ==
[2019-11-24 08:43] VITALS: BP 116/86; PULSE 88
[2019-11-24] MEDS ORDERED: Sodium Chloride 0.9% 2.5 ML Syringe FLUSH PRN ×2 (08:55)
[2019-11-24] MEDS ORDERED: Aspirin 81 MG Tab.Chew PO ONE (08:55)
[2019-11-24] MEDS ORDERED: Sodium Chloride 0.9% 10 ML Syringe FLUSH PRN (08:55)
--- NOTE | 2019-11-24 08:59 | EDM.PDOC ---
ED HPI GENERAL MEDICAL PROBLEM - General Chief Complaint: Respiratory Problem Stated Complaint: "BURNING IN LUNGS" Time Seen by Provider: 11/24/19 08:42 - History of Present Illness INITIAL COMMENTS - FREE TEXT/NARRATIVE: History of present illness: For approximately 1 month this patient has had symptoms of postnasal drip cough and dyspnea he has had trouble with his breathing especially episodically at night when he is lying supine he denies any leg pain leg swelling no fever no chills no chest pain other than it fisher when he breathes when he is having trouble with the dyspnea. Seen multiple doctors been on multiple rounds of antibiotics steroids and inhaler and these things are not resolving his issue. He has no known exposures he was tested for COVID a couple weeks ago this was negative. He is concerned that he continues to have bouts of difficulty breathing with burning lungs and a dry nonproductive cough intermittently. Review of systems: As per history of present illness and below otherwise all systems reviewed and negative. Past medical history: As per history of present illness and as reviewed below otherwise noncontributory. Surgical history: As per history of present illness and as reviewed below otherwise noncontributory. Social history: No reported history of drug or alcohol abuse. Family history: As per history of present illness and as reviewed below otherwise noncontributory. Physical exam: HEENT: Atraumatic, normocephalic, pupils reactive, negative for conjunctival pallor or scleral icterus, mucous membranes moist, throat clear, neck supple, nontender, trachea midline. Lungs: Clear to auscultation, breath sounds equal bilaterally, chest nontender. Heart: S1S2, regular, negative for clicks, rubs, or JVD. Abdomen: Soft, nondistended, nontender. Negative for masses or hep atosplenomegaly. Negative for costovertebral tenderness. Pelvis: Stable nontender. Genitourinary: Deferred. Rectal: Deferred. Extremities: Atraumatic, negative for cords or calf pain. Neurovascular un remarkable. Neuro: Awake, alert, oriented. Cranial nerves II through XII unremarkable. Cerebellum unremarkable. Motor and sensory unremarkable throughout. Exam nonfocal. Diagnostics: [] Therapeutics: [] Impression: Dyspnea, cough [] Plan: Labs x-ray for cardiovascular pulmonary work-up. Patient will then be reassessed. [] Definitive disposition and diagnosis as appropriate pending reevaluation and review of above. - Related Data Allergies Allergy/AdvReac Type Severity Reaction Status Date / Time Seasonal Allergy Mild Other Uncoded 11/24/19 08:41 Cat Dander Allergy Sneezing Uncoded 11/24/19 08:41 Walleye Allergy Hives Uncoded 11/24/19 08:41 Home Meds: Home Meds amLODIPine [Norvasc] 5 mg PO BID 03/21/15 [History] Omega3/Dha/Epa/Fish Oil/Vit D3 [Fish Oil + Vitamin D-3 Softgel] 1,000 mg PO DAILY 12/11/15 [History] Ibuprofen 200 mg PO ASDIRECTED PRN 01/10/19 [History] Viagra 50 - 100 mg PO ASDIRECTED PRN 01/10/19 [History] Benzonatate [Tessalon Perle] 100 mg PO Q6HR #30 capsule 11/24/19 [Rx] Past Medical History HEENT History: Reports: Other (See Below) Other HEENT History: has reading glasses, had recent root canal Cardiovascular History: Reports: Hypertension Respiratory History: Reports: Sleep Apnea Other Respiratory History: states sleep apnea is "very mild"-does not use CPAP Gastrointestinal History: Reports: Colon Polyp Other Gastrointestinal History: occasional heartburn Genitourinary History: Reports: Prostate Disorder Other Genitourinary History: hx of prostate cancer Musculoskeletal History: Reports: Osteoarthritis Other Musculoskeletal History: hx: Hairline fracture to Left leg Neurological History: Reports: None Psychiatric History: Reports: None Endocrine/Metabolic History: Reports: Obesity/BMI 30+ Hematologic History: Reports: Blood Transfusion(s) Other Hematologic History: blood transfusion with prostatectomy Immunologic History: Reports: None Oncologic (Cancer) History: Reports: Prostate Dermatologic History: Reports: None - Past Surgical History Head Surgeries/Procedures: Reports: None HEENT Surgical History: Reports: Tonsillectomy GI Surgical History: Reports: Colonoscopy Male Surgical History: Reports: Prostatectomy Musculoskeletal Surgical History: Reports: Arthroscopic Knee, Hip Replacement, Knee Replacement Oncologic Surgical History: Reports: Other (See Below) Other Oncologic Surgeries/Procedures: hx of Radical Prostatectomy followed by radiation ED ROS GENERAL - Review of Systems Review Of Systems: See Below ED EXAM, GENERAL - Physical Exam Exam: See Below Course - Vital Signs Text/Narrative:: One-view portable chest read and interpreted by me no acute cardiopulmonary pathology is evident. His labs are reviewed there is no evidence for heart failure heart injury or any cardiac cause for his dyspnea the lungs are clear I do not see evidence for pneumonia blood work looks good otherwise no anemia there is no specific cause for his dyspnea that is cardiovascularly related. Patient be discharged home on Tessalon Perles recommend hot tea with honey and follow-up with primary care doctor. Last Recorded V/S: Last Vital Signs Temp 36.2 C 11/24/19 08:41 Pulse 88 11/24/19 08:41 Resp 18 11/24/19 08:41 BP 116/86 11/24/19 08:41 Pulse Ox 96 11/24/19 08:41 - Orders/Labs/Meds Orders: Active Orders 24 hr Category Date Time Status EKG Documentation Completion [RC] STAT Care 11/24/19 08:56 Active Sodium Chloride 0.9% [Saline Flush] Med 11/24/19 08:55 Active 10 ml FLUSH ASDIRECTED PRN Sodium Chloride 0.9% [Saline Flush] Med 11/24/19 08:55 Active 2.5 ml FLUSH ASDIRECTED PRN Sodium Chloride 0.9% [Saline Flush] Med 11/24/19 08:55 Active 2.5 ml FLUSH ASDIRECTED PRN Saline Lock Insert [OM.PC] Stat Oth 11/24/19 08:55 Ordered Medication Orders Sodium Chloride (Saline Flush) 2.5 ml FLUSH ASDIRECTED PRN PRN Reason: Keep Vein Open Last Admin: 11/24/19 09:33 Dose: 2.5 ml Documented by: [id number] Sodium Chloride (Saline Flush) 2.5 ml FLUSH ASDIRECTED PRN PRN Reason: Keep Vein Open Last Admin: 11/24/19 09:33 Dose: 2.5 ml Documented by: [id number] Sodium Chloride (Saline Flush) 10 ml FLUSH ASDIRECTED PRN PRN Reason: Keep Vein Open Last Admin: 11/24/19 09:32 Dose: 10 ml Documented by: [id number] Labs: Laboratory Tests 11/24/19 11/24/19 11/24/19 Range/Units 09:35 09:35 09:35 WBC 4.21 (4.0-11.0) K/uL RBC 4.73 (4.50-5.90) M/uL Hgb 13.9 (13.0-17.0) g/dL Hct 42.6 (38.0-50.0) % MCV 90.1 (80.0-98.0) fL MCH 29.4 (27.0-32.0) pg MCHC 32.6 (31.0-37.0) g/dL RDW Std Deviation 43.0 (28.0-62.0) fl RDW Coeff of Lizet 13 (11.0-15.0) % Plt Count 192 (150-400) K/uL MPV 9.20 (7.40-12.00) fL Neut % (Auto) 69.4 (48.0-80.0) % Lymph % (Auto) 18.5 (16.0-40.0) % Harnett % (Auto) 8.3 (0.0-15.0) % Eos % (Auto) 3.3 (0.0-7.0) % Baso % (Auto) 0.5 (0.0-1.5) % Neut # (Auto) 2.9 (1.4-5.7) K/uL Lymph # (Auto) 0.8 (0.6-2.4) K/uL Harnett # (Auto) 0.4 (0.0-0.8) K/uL Eos # (Auto) 0.1 (0.0-0.7) K/uL Baso # (Auto) 0.0 (0.0-0.1) K/uL Nucleated RBC % 0.0 /100WBC Nucleated RBCs # 0 K/uL Sodium 144 (136-148) mmol/L Potassium 3.3 L (3.5-5.1) mmol/L Chloride 105 (98-107) mmol/L Carbon Dioxide 29.0 (21.0-32.0) mmol/L BUN 17 (7.0-18.0) mg/dL Creatinine 1.1 (0.8-1.3) mg/dL Est Cr Clr Drug Dosing 57.59 mL/min Estimated GFR (MDRD) > 60.0 ml/min Glucose 150 H (74-106) mg/dL Calcium 8.7 (8.5-10.1) mg/dL Total Bilirubin 0.5 (0.2-1.0) mg/dL AST 17 (15-37) IU/L ALT 28 (14-63) IU/L Alkaline Phosphatase 111 (46-116) U/L Troponin I < 0.050 (0.000-0.056) ng/mL B-Natriuretic Peptide 9 (<100) PG/ML Total Protein 7.0 (6.4-8.2) g/dL Albumin 4.1 (3.4-5.0) g/dL Globulin 2.9 (2.6-4.0) g/dL Albumin/Globulin Ratio 1.4 (0.9-1.6) Meds: Medications Generic Name Dose Route Start Last Admin Trade Name Freq PRN Reason Stop Dose Admin Sodium Chloride 2.5 ml 11/24/19 08:55 11/24/19 09:33 Saline Flush FLUSH 2.5 ml ASDIRECTED PRN Administration Keep Vein Open Sodium Chloride 2.5 ml 11/24/19 08:55 11/24/19 09:33 Saline Flush FLUSH 2.5 ml ASDIRECTED PRN Administration Keep Vein Open Sodium Chloride 10 ml 11/24/19 08:55 11/24/19 09:32 Saline Flush FLUSH 10 ml ASDIRECTED PRN Administration Keep Vein Open Discontinued Medications Generic Name Dose Route Start Last Admin Trade Name Freq PRN Reason Stop Dose Admin Aspirin 324 mg 11/24/19 08:55 11/24/19 09:26 Aspirin PO 11/24/19 08:56 324 mg ONETIME ONE Administration Departure - Departure Time of Disposition: 11:21 Disposition: Home, Self-Care 01 Condition: Good Clinical Impression: Cough - Discharge Information *PRESCRIPTION DRUG MONITORING PROGRAM REVIEWED*: Not Applicable *COPY OF PRESCRIPTION DRUG MONITORING REPORT IN PATIENT RAVINDER: Not Applicable Instructions: Shortness of Breath, Adult, [id number], Cough, Adult, [id number] Referrals: Cricket Singh MD [Primary Care Provider] - Forms: ED Department Discharge Additional Instructions: The following information is given to patients seen in the emergency department who are being discharged to home. This information is to outline your options for follow-up care. We provide all patients seen in our emergency department with a follow-up referral. The need for follow-up, as well as the timing and circumstances, are variable depending upon the specifics of your emergency department visit. If you don't have a primary care physician on staff, we will provide you with a referral. We always advise you to contact your personal physician following an emergency department visit to inform them of the circumstance of the visit and for follow-up with them and/or the need for any referrals to a consulting specialist. The emergency department will also refer you to a specialist when appropriate. This referral assures that you have the opportunity for follow-up care with a specialist. All of these measure are taken in an effort to provide you with optimal care, which includes your follow-up. Under all circumstances we always encourage you to contact your private physician who remains a resource for coordinating your care. When calling for follow-up care, please make the office aware that this follow-up is from your recent emergency room visit. If for any reason you are refused follow-up, please contact the [facility] Emergency Department at and asked to speak to the emergency department charge nurse. [facility] - Primary Care [address] [place] [address] [id number] [facility] Room [address] [place] [address] Sepsis Event Note (ED) - Evaluation Sepsis Screening Result: No Definite Risk - Focused Exam Vital Signs: Vital Signs Temp Pulse Resp BP Pulse Ox 11/24/19 08:41 36.2 C 88 18 116/86 96 - My Orders Last 24 Hours: My Active Orders 11/24/19 08:55 Sodium Chloride 0.9% [Saline Flush] 10 ml FLUSH ASDIRECTED PRN Sodium Chloride 0.9% [Saline Flush] 2.5 ml FLUSH ASDIRECTED PRN Sodium Chloride 0.9% [Saline Flush] 2.5 ml FLUSH ASDIRECTED PRN Saline Lock Insert [OM.PC] Stat 11/24/19 08:56 EKG Documentation Completion [RC] STAT - Assessment/Plan Last 24 Hours: My Active Orders 11/24/19 08:55 Sodium Chloride 0.9% [Saline Flush] 10 ml FLUSH ASDIRECTED PRN Sodium Chloride 0.9% [Saline Flush] 2.5 ml FLUSH ASDIRECTED PRN Sodium Chloride 0.9% [Saline Flush] 2.5 ml FLUSH ASDIRECTED PRN Saline Lock Insert [OM.PC] Stat 11/24/19 08:56 EKG Documentation Completion [RC] STAT
--- NOTE | 2019-11-24 09:48 | CR ---
INDICATION: cough INDICATION: Cough. TECHNIQUE: Chest 1 view. COMPARISON: None FINDINGS: Cardiovascular and mediastinum: Heart size and vasculature are normal in caliber and appearance. Mediastinum is within normal limits. Lungs and pleural space: Lungs are clear. No sign of infiltrate or mass. No sign of pleural effusion. No pneumothorax. Bones and soft tissues: No significant findings. IMPRESSION: Lungs are clear. Dictated by Trevor Garcia MD @ 11/24/2019 9:47:03 AM Dictated by: Trevor Garcia MD @ 11/24/2019 09:47:11 (Electronically Signed)
[2019-11-24 10:10] LABS: BLOOD UREA NITROGEN,BUN 17 mg/dL (7.0-18.0); CHLORIDE,CL 105 mmol/L (98-107); GLUCOSE RANDOM 150 mg/dL (74-106); POTASSIUM,K 3.3 mmol/L (3.5-5.1); SODIUM,NA 144 mmol/L (136-148)
== END 2019-11-24 11:44 | disposition home or self-care (01) ==
LOC: MW.ED 08:17
DX: R05 Cough (principal); I10 Essential (primary) hypertension; E66.9 Obesity, unspecified; Z68.34 Body mass index [BMI] 34.0-34.9, adult; Z91.048 Other nonmedicinal substance allergy status
CPT/HCPCS: 36415; 71045; 80053; 83880; 84484; 85025; 93005; 99285; A9270; 99282